=== PATIENT | male | born 1950 | race Caucasian/White ===

== ENCOUNTER 2017-06-25 06:38 | Inpatient (IN) ==
[2017-06-25] MEDS ORDERED: CeFAZolin Syr 2,000MG/20 ML 2,000 MG/20 ML SYRINGE IVPB ONE (06:58)
[2017-06-25] MEDS ORDERED: Lidocaine -MPF 1% 2 ML VIAL ID ONE (06:58)
[2017-06-25] MEDS ORDERED: Ringers Solution, Lactated 1,000 ML IVC SCH (07:00)
--- NOTE | 2017-06-25 07:01 | Anesthesia Evaluation PreOp ---
Date of Encounter: 06/25/17 Time of Encounter: 06:59 - Past History Planned Operation: Maria Alejandra Fundoplication Cardiac History: HTN Pulmonary History: Denies Any Significant HX LOADER TECHNICIAN History: Denies Any Significant HX Other Medical History: GERD (paraesophageal Hernia) Anesthesia History: No Prior Anesthetic Complications, Past Anesthesia (Right shoulder, Left Knee, Tonsillectomy) Alcohol Use: none Drug use: none Medications and Allergies 3 Allergy/AdvReac Type Severity Reaction Status Date / Time No Known Allergies Allergy Verified 06/11/17 13:59 - Meds/Allergy Pre-op Review Medications Reviewed: Yes Allergies Reviewed: Yes Beta Blockers on Current Med List: No Anesthesia Results - Labs Laboratory Tests 06/11/17 06/11/17 14:10 14:10 WBC 6.9 Hgb 14.5 Hct 44.2 Plt Count 320 Potassium 4.2 Creatinine 1.23 - Imaging EKG: report reviewed (SR) Anesthesia Exam NPO (# of Hours): > 8 hrs Pain Scale: 0 Pain Scale Used: Numeric (1 - 10) (0) - HEENT Pupil (Motor): Pupils equal, EOMI Mallampati: III Teeth: Normal Oral Opening: Greater than 3 - LOADER TECHNICIAN LOC: Oriented LOADER TECHNICIAN Motor: Normal RUE, Normal LUE, Normal RLE, Normal LLE, Normal Face LOADER TECHNICIAN Sensory: Normal: RUE, LUE, RLE, LLE, Face - Cardiac Rhythm: Regular Murmur: None JVD: No Carotid Bruit: No - Pulmonary Breath Sounds: bilateral Clear Respiratory Effort: Symmetrical Anesthesia Assess/Plan ASA Score: 2 Modified Pomaria Scale for Level of Consciousness: Cooperative, oriented, and tranquil Anesthetic Plan: General Autologous Blood: Yes Monitoring Plan: Standard Monitors Recovery Plan: PACU
[2017-06-25] MEDS ORDERED: Neostigmine Methylsulfate 3 MG/3 ML SYRINGE ONE (07:07)
[2017-06-25] MEDS ORDERED: *HR* Phenylephrine 10 MG/ML VIAL ONE (07:07)
[2017-06-25] MEDS ORDERED: *HR* Succinylcholine 200 MG/10 ML VIAL IVP ONE (07:07)
[2017-06-25] MEDS ORDERED: Dexamethasone 4 MG/ML VIAL ONE (07:07)
[2017-06-25] MEDS ORDERED: *HR* FentaNYL (PF) 100 MCG/2 ML VIAL ONE (07:07)
[2017-06-25] MEDS ORDERED: Lidocaine -MPF 2% 2 ML VIAL ONE ×2 (07:07)
[2017-06-25] MEDS ORDERED: *HR* Rocuronium Bromide 50 MG/5 ML VIAL ONE ×2 (07:07→10:13)
[2017-06-25] MEDS ORDERED: Lidocaine -MPF 4% 5 ML AMPUL ONE (07:07)
[2017-06-25] MEDS ORDERED: *HR* Midazolam HCl 2 MG/2 ML VIAL ONE (07:07)
[2017-06-25] MEDS ORDERED: Ondansetron 4 MG/2 ML VIAL ONE (07:07)
[2017-06-25] MEDS ORDERED: *HR* Propofol 200 MG/20 ML VIAL IVP ONE ×2 (07:07→10:06)
--- NOTE | 2017-06-25 07:08 | History & Physical Report ---
Date of Encounter: 06/25/17 Time of Encounter: 07:00 24 Hour HP Update - Instructions Instructions: If the History and Physical is less than 30 days old and was completed prior to A.M. admission and or procedure and has NOT been updated on calendar day of procedure please complete this update prior to performing procedure. - Update Patient reports changes in Medical Condition: No Changes in examination, assessment, or condition: No Changes in Medication: No Preop tests/diagnostics Reviewed: Yes Surgery Remains Indicated: Yes Consent for Planned Operative Procedure(s) Verified: Yes - Pre-Operative Checklist Preoperative Checklist Indicated: Yes Prophylactic Antibiotic Ordered: Yes Home Medications Include Beta Celia: No Is VTE Prophylaxis Indicated?: Yes
[2017-06-25] MEDS ORDERED: cefOXitin 1,000 MG, Sodium Chloride IRRigation 1,000 ML IR ONE ×2 (09:00→13:43)
[2017-06-25] MEDS ORDERED: CefOXitin 2,000 MG VIAL ONE (09:17)
[2017-06-25] MEDS ORDERED: *HR* Promethazine 25 MG/ML VIAL IVP PRN (10:26)
[2017-06-25] MEDS ORDERED: *HR* HYDROmorphone 2 MG/ML SYRINGE ONE (11:05)
[2017-06-25] MEDS ORDERED: CefOXitin 1,000 MG VIAL ONE (11:11)
[2017-06-25] MEDS ORDERED: *HR* HYDROmorphone (PF) 1 MG/ML SYRINGE IVP PRN (11:35)
[2017-06-25] MEDS ORDERED: Ondansetron 4 MG/2 ML VIAL IVP PRN ×2 (11:35→13:43)
[2017-06-25] MEDS ORDERED: *HR* OxyCODONE/APAP 5/325 TABLET PO PRN (11:35)
[2017-06-25] MEDS: *HR* HYDROmorphone (PF) 1 MG/ML SYRINGE IVP PRN ×6 (11:45→18:03)
[2017-06-25] MEDS ORDERED: 0.9 % Sodium Chloride 1,000 ML IVC SCH (11:45)
[2017-06-25] MEDS ORDERED: *HR* HYDROmorphone (PF) 1 MG/ML SYRINGE ONE ×3 (11:48→12:38)
--- NOTE | 2017-06-25 11:50 | Operative Note ---
Date of procedure: 06/25/17 Pre-op diagnosis: Paraesophageal hiatal hernia with gastric volvulus Post-op diagnosis: same Procedure: #1 repair of paraesophageal hiatal hernia #2 Maria Alejandra fundoplication #3 lysis of adhesions times 1 hour Anesthesia: BRANDT Surgeon: Fred Carson Was there an dental office assistant present: Yes Moving Van Driver: Aydee Hernandez Estimated blood loss (cc): 25 Specimen: Hernia sac Condition: stable Disposition: PACU Procedure in Detail: After informed consent the patient was taken to the major operating suite and is placed in the supine position. He is given adequate general anesthetic. We are unable to place Sue catheter. There appeared to be a urinary stricture about 1 cm inside the meatus. The abdomen was prepped and draped in sterile fashion utilizing ChloraPrep in standard draping techniques. Timeout was taken and the patient was identified. I made an upper abdominal midline incision. Abdomen was entered. There is absolutely no stomach and the abdomen. I mobilized the triangular ligament of the lateral segment left lobe of liver. This was mobilized to the level of the inferior vena cava. I then retracted the lateral segment of the left lobe inferiorly and medially. I brought most stomach out of the chest. There was a complex set of bandlike scars as well as hernia sacs extending into the mediastinum both on the right and the left side. I divided the hernia sac overlying the right pranay of the diaphragm. Using this as an initial dissection I carefully worked to remove all of the hernia sac from the mediastinum. Any dissection in the area of the esophagus was guided by a lighted 54-[place] bougie. Removal of the hernia sac from the mediastinum took 1 hour. There is a good deal of soft tissue at the superior border of the pancreas that was also rolled in the mediastinum. I divided soft tissue superior to this tissue mass and was able to rotate this back into the retroperitoneum and out of the mediastinum by dividing all the tissue anterior to the right and left crura of the diaphragm. After one hour of dissection I was able to free the stomach from all connections to the mediastinum and protect the esophagus. The hernia sac was completely resected and sent for pathologic evaluation. This was quite a large specimen. I then divided the short gastrics of the cardia with Harmonic scalpel. I was able to surround the gastroesophageal junction with Yeimy and visualized the right and left pranay of the diaphragm from the right side. I performed hiatal hernia repair with 4 stitches of pledgeted 2-0 Ethibond suture material. I then brought the cardia behind the gastroesophageal junction and performed a drop and shoeshine test. Maria Alejandra fundoplication was created using 3 stitches of 2-0 Ethibond with pledgets. I secured the Maria Alejandra fundoplication to the diaphragm using shoulder stitches. I used one stitch on the right and one on the left securing the Maria Alejandra fundoplication to the diaphragm just outside of the hiatal hernia repair. This gave an excellent technical result and stabilize the wrap. I also performed an area of anterior gastropexy with 3 stitches of 2-0 silk tightly grouped between the greater curvature of the stomach just below the cardia and the diaphragm. This gave an excellent technical result. Catheter was removed. All sponges and retractors were removed. The sponge and needle count was correct. Soft counts correct. The abdomen was closed with looped 0 PDS and the skin with interrupted 2-0 Vicryl and skin clips. She tolerated the procedure well.
[2017-06-25] MEDS ORDERED: Ketorolac 30 MG/ML VIAL IVP ONE (12:11)
[2017-06-25] MEDS ORDERED: Acetaminophen IV 1,000 MG/100 ML INFUS..BTL IVPB ONE (12:12)
[2017-06-25] MEDS ORDERED: Acetaminophen IV 1,000 MG/100 ML INFUS..BTL ONE (12:21)
[2017-06-25] MEDS ORDERED: *HR* HYDROmorphone 2 MG/ML SYRINGE IVP ONE (12:43)
--- NOTE | 2017-06-25 13:05 | Anesthesia Evaluation Post Op ---
Date of Encounter: 06/25/17 Time of Encounter: 13:03 - Vital Signs Vital Signs: Vital Signs/O2 Sat, Most Current Temp Pulse Resp BP Pulse Ox 98.1 F 82 16 100/76 97 06/25/17 12:42 06/25/17 12:52 06/25/17 12:52 06/25/17 12:52 06/25/17 12:52 - Lungs Lungs: Clear Ascult./Percussion - Airway Airway: Non-obstructed - Cardiovascular Regular Rate - Mental Status Mental Status: Alert & Oriented, Answers Appropriately - Pain Pain Scale: 3 - Nausea Vomiting Nausea Vomiting: Not Present - Hydration Hydration: NPO, Has not voided - Discharge PostOp Status: Transfer Patient to floor
[2017-06-25] MEDS: CeFAZolin Premix DUPLEX 2,000 MG/50 ML BAG IVPB SCH (15:19)
[2017-06-25] MEDS: 0.9 % Sodium Chloride 1,000 ML IVC SCH (15:20)
[2017-06-25] MEDS ORDERED: CeFAZolin Premix DUPLEX 2,000 MG/50 ML BAG IVPB SCH (16:00)
[2017-06-25] MEDS ORDERED: *HR* Heparin 5,000 UNIT/ML VIAL SQ SCH (18:00)
[2017-06-25] MEDS: *HR* Heparin 5,000 UNIT/ML VIAL SQ SCH (18:03)
[2017-06-25] MEDS: *HR* OxyCODONE/APAP 5/325 TABLET PO PRN (21:52)
[2017-06-26] MEDS: *HR* HYDROmorphone (PF) 1 MG/ML SYRINGE IVP PRN ×6 (00:03→23:22)
[2017-06-26] MEDS: CeFAZolin Premix DUPLEX 2,000 MG/50 ML BAG IVPB SCH (00:04)
[2017-06-26] MEDS: *HR* OxyCODONE/APAP 5/325 TABLET PO PRN ×2 (02:27→15:53)
[2017-06-26] MEDS: 0.9 % Sodium Chloride 1,000 ML IVC SCH ×3 (02:28→22:05)
[2017-06-26 05:13] LABS: Calcium 8.6 mg/dL (8.6-10.3); Potassium 4.4 mEq/L (3.5-5.1)
[2017-06-26 05:28] LABS: Basophils % 0.1 %; Hematocrit 40.5 % (37.5-50.1); Hemoglobin 13.1 g/dL (12.9-16.9); Immature Granulocytes % 0.4 % (0-4); Lymphocytes % 8.7 %; Mean Corpuscular HGB Conc 32.3 g/dL (31.6-35.5); Mean Corpuscular Hemoglobin 29.5 pg (28.0-33.3); Mean Corpuscular Volume 91.2 fL (83.0-100.0); Mean Platelet Volume 10.3 fL (9.4-12.4); Monocytes % 9.5 %; Platelet Count 301 K/mcL (140-400); Red Blood Count 4.44 M/mcL (4.19-5.50); Red Cell Distribution Width 12.8 % (11.5-14.5); Segmented Neutrophils % 81.3 %
[2017-06-26] MEDS: *HR* Heparin 5,000 UNIT/ML VIAL SQ SCH ×2 (05:41→17:34)
--- NOTE | 2017-06-26 08:10 | General Surgery Progress Note ---
<Shirley Barahona - Last Filed: 06/26/17 15:12> Date of Encounter: 06/26/17 Time of Encounter: 08:08 - Assessment and Plan (1) S/P repair of paraesophageal hernia Current Visit: Yes Status: Acute Date of procedure: 06/25/17 Pre-op diagnosis: Paraesophageal hiatal hernia with gastric volvulus Post-op diagnosis: same Procedure: #1 repair of paraesophageal hiatal hernia #2 Maria Alejandra fundoplication # 3 lysis of adhesions Anesthesia: DEE DEEA Surgeon: Fred Carson POD #1 Plan: serial abdominal exams Clear liquid diet continue supportive care and discomfort management while awaiting return bowel function. Repeat a.m. labs ambulate TID with assistance up to chair for all trays continue G.I. and DVT prophylaxis Pulmonary consideration: -Pt endorsed one episodes of mucus secretion. Denies SOB. If recurrent, SOB, cough develops will plan for CXR stat in AM. -Recommended deep inspiration, with priority for adequate pain management -Incentive spirometry while awake (2) Hypertension Current Visit: Yes Status: Chronic IV lopressor PRN. Qualifiers: Hypertension type: essential hypertension Qualified Code(s): I10 - Essential (primary) hypertension (4) Hyponatremia Current Visit: Yes Status: Acute Corrected 130 (Glucose 119 mg/dL). Will monitor. Asymptomatic. BMP in AM. (5) Postoperative urinary retention Current Visit: Yes Status: Acute AM Bladder scan by RN - [address] taylor - Concern for possible stricture noted in pre-operative care Expectant management until noon If unable to void, will plan for urology consult due to possible stricture Reassessed in afternoon: Pt able to void without difficulty. Continue to monitor I/O. (6) DVT prophylaxis Current Visit: Yes Status: Acute Heparin SubQ Subjective Patient reports: tolerating liquids well, no flatus, no bowel movement, afebrile Narrative: No N/V. No flatus, no bowel movement as of approx 8:30 AM. Reassessed in afternoon: Endorsed one episode mucus in AM. No blood in mucus. And none since then. Able to void without difficulty in afternoon. Denies SOB. Not wearing nasal cannula and wondering if he can discontinue use altogether. Endorses use of incentive spirometry. Objective Vital Signs - Last 8 Hours Temp Pulse Resp BP Pulse Ox 06/26/17 07:57 97.5 F L 77 14 110/74 97 06/26/17 04:15 97.5 F L 78 14 105/71 93 06/26/17 01:03 97.6 F 79 14 112/72 93 Intake and Output 06/25/17 06/26/17 06/26/17 23:59 07:59 15:59 Intake Total 0 / 0 390 / 390 Output Total 0 / 0 150 / 150 Balance 0 / 0 240 / 240 Intake: IV Fluids 150 / 150 0.9 % Sodium Chloride 1,000 ML 100 / 100 @ 100 mls/hr IVC .Q10H [facility] Rx#: [id number] Ancef Premix DUPLEX 2,000 mg In 50 / 50 50 ml @ 100 mls/hr IVPB Q8HR [facility] Rx#:[id number] Oral 0 / 0 240 / 240 Output: Urine 0 / 0 150 / 150 Other: Weight 102.33 kg Patient Weight 06/26/17 23:59 Weight 102.33 kg - General physical appearance no distress - Eyes normal ocular movement - Respiratory normal expansion, normal respiratory effort - Cardiovascular Cardiovascular exam: Present: RRR, no murmurs/rubs/gallops - Abdomen Abdomen: Present: bowel sounds present, soft, non tender, tender (light tenderness on palpation ) - Labs 06/26/17 04:43 06/26/17 04:43 Diabetes panel 06/26/17 Range/Units 04:43 Sodium 130 L (136-145) mEq/L Potassium 4.4 (3.5-5.1) mEq/L Chloride 102 (98-107) mEq/L Carbon Dioxide 22 L (23-29) mEq/L BUN 28 H (8-23) mg/dL Creatinine 1.67 H (0.70-1.30) mg/dL Glucose 119 H (70-105) mg/dL Calcium 8.6 (8.6-10.3) mg/dL Calcium panel 06/26/17 Range/Units 04:43 Calcium 8.6 (8.6-10.3) mg/dL Pituitary panel 06/26/17 Range/Units 04:43 Sodium 130 L (136-145) mEq/L Potassium 4.4 (3.5-5.1) mEq/L Chloride 102 (98-107) mEq/L Carbon Dioxide 22 L (23-29) mEq/L BUN 28 H (8-23) mg/dL Creatinine 1.67 H (0.70-1.30) mg/dL Glucose 119 H (70-105) mg/dL Calcium 8.6 (8.6-10.3) mg/dL Adrenal panel 06/26/17 Range/Units 04:43 Sodium 130 L (136-145) mEq/L Potassium 4.4 (3.5-5.1) mEq/L Chloride 102 (98-107) mEq/L Carbon Dioxide 22 L (23-29) mEq/L BUN 28 H (8-23) mg/dL Creatinine 1.67 H (0.70-1.30) mg/dL Glucose 119 H (70-105) mg/dL Calcium 8.6 (8.6-10.3) mg/dL - VTE Documentation of Mechanical Device: Intermittent pneumatic compression device Consult Discharge Plan - Plan Referrals: Mary Lopez KIDS ACTIVITIES COACH [Primary Care Provider] - Therese Watkins CNP [Advanced Practice Nurse] - 07/14/17 1:00 pm <Fred Carson - Last Filed: 06/29/17 08:30> Date of Encounter: 06/26/17 Objective Vital Signs - Last 8 Hours Temp Pulse Resp BP Pulse Ox 06/29/17 06:50 97.4 F L 77 14 133/84 94 06/29/17 03:59 16 95 06/29/17 03:53 98.0 F 74 18 128/87 95 Intake and Output 06/28/17 06/29/17 06/29/17 23:59 07:59 15:59 Intake Total 460 / 460 500 / 500 Output Total 500 / 500 1999 Balance -40 / -40 -1500 / -1500 Intake: IV Fluids 100 / 100 200 / 200 Ofirmev 1,000 mg/100 ml 1,000 100 / 100 200 / 200 mg In 100 ml @ 400 mls/hr IVPB Q6H [facility] Rx#:[id number] Oral 360 / 360 300 / 300 Output: Urine 500 / 500 1999 Other: Meal Dinner Percent of Meal Consumed 0% # Voids 1 Weight 103.62 kg Patient Weight 06/29/17 23:59 Weight 103.62 kg - Labs 06/29/17 04:35 06/28/17 08:44 Diabetes panel 01/28/18 Range/Units 08:44 Sodium 120 L* (136-145) mEq/L Thyroid panel 06/29/17 Range/Units 04:35 TSH 2.119 (0.340-5.600) mcIU/mL Pituitary panel 06/28/17 06/29/17 Range/Units 08:44 04:35 Sodium 120 L* (136-145) mEq/L TSH 2.119 (0.340-5.600) mcIU/mL Adrenal panel 06/28/17 Range/Units 08:44 Sodium 120 L* (136-145) mEq/L - Attending Attestation I examined this patient and my medical decision-making was reviewed with the Resident Physician. I agree with the documented findings, disposition and treatment plan as described except to the extent set forth below. The patient is seen and evaluated on morning rounds with the resident. He is doing well on postoperative day 1. He is in good deal of pain from the upper abdominal incision. Continue supportive care. Fred Carson MD FACS
[2017-06-26] MEDS ORDERED: *HR* Metoprolol 5 MG/5 ML VIAL IVP PRN (09:13)
[2017-06-27] MEDS: *HR* OxyCODONE/APAP 5/325 TABLET PO PRN ×3 (00:39→08:48)
[2017-06-27] MEDS: *HR* HYDROmorphone (PF) 1 MG/ML SYRINGE IVP PRN ×3 (02:49→21:06)
[2017-06-27 04:03] LABS: Basophils % 0.2 %; Eosinophils % 0.2 %; Hematocrit 36.2 % (37.5-50.1); Immature Granulocytes % 0.4 % (0-4); Lymphocytes # 1.2 K/mcL (0.6-4.6); Lymphocytes % 10.8 %; Mean Corpuscular HGB Conc 33.1 g/dL (31.6-35.5); Mean Corpuscular Hemoglobin 29.5 pg (28.0-33.3); Mean Corpuscular Volume 88.9 fL (83.0-100.0); Mean Platelet Volume 10.1 fL (9.4-12.4); Monocytes # 1.3 K/mcL (0.0-1.3); Monocytes % 11.9 %; Neutrophils # 8.3 K/mcL (1.6-8.9); Platelet Count 278 K/mcL (140-400); Red Blood Count 4.07 M/mcL (4.19-5.50); Red Cell Distribution Width 12.5 % (11.5-14.5); Segmented Neutrophils % 76.5 %
[2017-06-27 04:31] LABS: BUN/Creatinine Ratio 15 (6-26); Blood Urea Nitrogen 15 mg/dL (8-23); Calcium 8.4 mg/dL (8.6-10.3); Carbon Dioxide 23 mEq/L (23-29); Chloride 99 mEq/L (98-107); Glucose 115 mg/dL (70-105); Osmolality,Calculated 266 (280-300); Potassium 3.9 mEq/L (3.5-5.1); Sodium 127 mEq/L (136-145); eGFR For African Americans > 60 (> 60); eGFR For Non-African Americans > 60 (> 60)
--- NOTE | 2017-06-27 05:00 | General Surgery Progress Note ---
<Shirley Barahona - Last Filed: 06/27/17 13:40> Date of Encounter: 06/27/17 Time of Encounter: 04:58 - Assessment and Plan (1) S/P repair of paraesophageal hernia Current Visit: Yes Status: Acute Date of procedure: 06/25/17 Pre-op diagnosis: Paraesophageal hiatal hernia with gastric volvulus Post-op diagnosis: same Procedure: #1 repair of paraesophageal hiatal hernia #2 Maria Alejandra fundoplication # 3 lysis of adhesions Anesthesia: DEE DEEA Surgeon: Fred Carson POD #2 Plan: serial abdominal exams Clear liquid diet, with supplements continue supportive care and discomfort management while awaiting return bowel function. ambulate TID with assistance up to chair for all trays continue G.I. and DVT prophylaxis IVF fluids - 50 ml/hr Pulm: -Pt endorsed one episodes of mucus secretion yesterday, resolved this AM. -Endorses SOB, cough, although improved. However, PE exam concern for lung consolidation -CXR stat ordered: Left basilar opacity seen, consistent with atelectatsis Reviewed image and report with Dr. Sparrow Will initiate AccuNeb -Respiratory consult in place and support for pulmonary toilet activity -Incentive spirometry while awake. Educated pt on importance of continued IS use -Recommended deep inspiration, with priority for adequate pain management (2) Hypertension Current Visit: Yes Status: Chronic BP remains within goal. Pt to resume PO meds today. Qualifiers: Hypertension type: essential hypertension Qualified Code(s): I10 - Essential (primary) hypertension (3) Hyponatremia Current Visit: Yes Status: Acute Will continue monitor. Asymptomatic. BMP in AM. (4) Postoperative urinary retention Current Visit: Yes Status: Acute Pt able to void without difficulty yesterday, initially there was concern for postoperative urinary retention in immediate overnight period. Bladder Scan 550 mL Initial retention may have been 2/2 to GETA response UOP appears adequate over reported 16-hr period: 1.1 cc/kg/hr Will Continue to monitor I/O. Do not place taylor if concern re-develops - Concern for possible stricture noted in pre-operative care. (5) DVT prophylaxis Current Visit: Yes Status: Acute Heparin SubQ Ambulation, as noted above, with assistance EPCDs Subjective Patient reports: no new complaints (No acute events overnight. Endorses sob, and some coughing, although improved. ), voiding w/o difficulty, afebrile Objective Vital Signs - Last 8 Hours Temp Pulse Resp BP Pulse Ox 06/27/17 04:20 97.9 F 83 18 118/78 94 06/26/17 22:28 97.8 F 81 17 121/73 94 Intake and Output 06/26/17 06/26/17 06/27/17 15:59 23:59 07:59 Intake Total 2080 / 2080 1800 / 1800 500 / 500 Output Total 325 / 325 1000 / 1000 400 / 400 Balance 1755 / 1755 800 / 800 100 / 100 Intake: IV Fluids 1000 / 1000 1000 / 1000 0.9 % Sodium Chloride 1,000 ML 1000 / 1000 1000 / 1000 @ 100 mls/hr IVC .Q10H [facility] Rx#: [id number] Oral 1080 / 1080 800 / 800 500 / 500 Output: Urine 325 / 325 1000 / 1000 400 / 400 Other: Meal Breakfast # Voids 1 Weight 103.5 kg Patient Weight 06/27/17 23:59 Weight 103.5 kg - General physical appearance no distress - Eyes normal ocular movement - Respiratory normal expansion, normal respiratory effort, other crackles: bilateral - Cardiovascular Cardiovascular exam: Present: RRR, no murmurs/rubs/gallops - Abdomen Abdomen: Present: bowel sounds present, soft, non tender - Neurologic normal coordination - Psychiatric oriented to time, oriented to person, oriented to place, speech is normal - Labs 06/27/17 03:22 06/27/17 03:22 Diabetes panel 06/26/17 06/27/17 Range/Units 04:43 03:22 Sodium 130 L 127 L (136-145) mEq/L Potassium 4.4 3.9 (3.5-5.1) mEq/L Chloride 102 99 (98-107) mEq/L Carbon Dioxide 22 L 23 (23-29) mEq/L BUN 28 H 15 (8-23) mg/dL Creatinine 1.67 H 0.98 (0.70-1.30) mg/dL Glucose 119 H 115 H (70-105) mg/dL Calcium 8.6 8.4 L (8.6-10.3) mg/dL Calcium panel 06/26/17 06/27/17 Range/Units 04:43 03:22 Calcium 8.6 8.4 L (8.6-10.3) mg/dL Pituitary panel 06/26/17 06/27/17 Range/Units 04:43 03:22 Sodium 130 L 127 L (136-145) mEq/L Potassium 4.4 3.9 (3.5-5.1) mEq/L Chloride 102 99 (98-107) mEq/L Carbon Dioxide 22 L 23 (23-29) mEq/L BUN 28 H 15 (8-23) mg/dL Creatinine 1.67 H 0.98 (0.70-1.30) mg/dL Glucose 119 H 115 H (70-105) mg/dL Calcium 8.6 8.4 L (8.6-10.3) mg/dL Adrenal panel 06/26/17 06/27/17 Range/Units 04:43 03:22 Sodium 130 L 127 L (136-145) mEq/L Potassium 4.4 3.9 (3.5-5.1) mEq/L Chloride 102 99 (98-107) mEq/L Carbon Dioxide 22 L 23 (23-29) mEq/L BUN 28 H 15 (8-23) mg/dL Creatinine 1.67 H 0.98 (0.70-1.30) mg/dL Glucose 119 H 115 H (70-105) mg/dL Calcium 8.6 8.4 L (8.6-10.3) mg/dL - VTE Documentation of Mechanical Device: Intermittent pneumatic compression device Consult Discharge Plan - Plan Referrals: Mary Lopez, [facility] PUNCHER [Primary Care Provider] - Therese Watkins CNP [Advanced Practice Nurse] - 07/14/17 1:00 pm <Rossana Sparrow - Last Filed: 06/27/17 14:12> Date of Encounter: 06/27/17 Time of Encounter: 09:45 - Assessment and Plan (1) Shortness of breath Current Visit: Yes Status: Acute start duoneb accupaps q6 hr encourage aggressive pulmomary toilet cough and deep breath decrease IVF (2) DVT prophylaxis Current Visit: Yes Status: Acute (3) S/P repair of paraesophageal hernia Current Visit: Yes Status: Acute continue clears OOB to chair, ambulate gi/dvt prophylaxis no nausea or distention, tolerating sips clears will decrease IVF (4) Hypertension Current Visit: Yes Status: Chronic Qualifiers: Hypertension type: essential hypertension Qualified Code(s): I10 - Essential (primary) hypertension Subjective Narrative: patient doing well complaining of coughing no nausea doing clears no flatus or bm denies abdominal distention complained of some SOB earlier Objective Vital Signs - Last 8 Hours Temp Pulse Resp BP Pulse Ox 06/27/17 10:30 97.5 F L 87 16 143/94 94 06/27/17 08:45 94 06/27/17 06:53 97.4 F L 81 16 126/81 94 Intake and Output 06/26/17 06/27/17 06/27/17 23:59 07:59 15:59 Intake Total 1800 / 1800 500 / 500 2505 / 2505 Output Total 1000 / 1000 400 / 400 400 / 400 Balance 800 / 800 100 / 100 2105 / 2105 Intake: IV Fluids 1000 / 1000 1125 / 1125 0.9 % Sodium Chloride 1,000 ML 1000 / 1000 1125 / 1125 @ 100 mls/hr IVC .Q10H [facility] Rx#: [id number] Oral 800 / 800 500 / 500 1380 / 1380 Output: Urine 1000 / 1000 400 / 400 400 / 400 Other: # Voids 1 1 Weight 103.5 kg Patient Weight 06/27/17 23:59 Weight 103.5 kg - General physical appearance well nourished, no distress - Eyes PERRL, normal ocular movement - ENT normal mucosa, normocephalic - Neck Neck exam: trachea midline - Respiratory normal expansion, other crackles: bilateral (bases) - Cardiovascular Cardiovascular exam: Present: RRR - Abdomen Abdomen: Present: bowel sounds present, soft, tender (appropriate post op tenderness, ). Absent: distended, guarding, rebound - Incision Incision: Present: clean and dry, intact - Integumentary no rash, no growths - Neurologic normal coordination - Musculoskeletal normal posture - Psychiatric oriented to time, oriented to person, memory intact - Labs 06/27/17 03:22 06/27/17 03:22 Diabetes panel 06/27/17 Range/Units 03:22 Sodium 127 L (136-145) mEq/L Potassium 3.9 (3.5-5.1) mEq/L Chloride 99 (98-107) mEq/L Carbon Dioxide 23 (23-29) mEq/L BUN 15 (8-23) mg/dL Creatinine 0.98 (0.70-1.30) mg/dL Glucose 115 H (70-105) mg/dL Calcium 8.4 L (8.6-10.3) mg/dL Calcium panel 06/27/17 Range/Units 03:22 Calcium 8.4 L (8.6-10.3) mg/dL Pituitary panel 06/27/17 Range/Units 03:22 Sodium 127 L (136-145) mEq/L Potassium 3.9 (3.5-5.1) mEq/L Chloride 99 (98-107) mEq/L Carbon Dioxide 23 (23-29) mEq/L BUN 15 (8-23) mg/dL Creatinine 0.98 (0.70-1.30) mg/dL Glucose 115 H (70-105) mg/dL Calcium 8.4 L (8.6-10.3) mg/dL Adrenal panel 06/27/17 Range/Units 03:22 Sodium 127 L (136-145) mEq/L Potassium 3.9 (3.5-5.1) mEq/L Chloride 99 (98-107) mEq/L Carbon Dioxide 23 (23-29) mEq/L BUN 15 (8-23) mg/dL Creatinine 0.98 (0.70-1.30) mg/dL Glucose 115 H (70-105) mg/dL Calcium 8.4 L (8.6-10.3) mg/dL - Imaging Chest x-ray: report reviewed, image reviewed - Attending Attestation I examined this patient and my medical decision-making was reviewed with the Resident Physician. I agree with the documented findings, disposition and treatment plan as described except to the extent set forth below.
[2017-06-27] MEDS: *HR* Heparin 5,000 UNIT/ML VIAL SQ SCH ×2 (06:04→18:03)
[2017-06-27] MEDS: 0.9 % Sodium Chloride 1,000 ML IVC SCH (08:39)
[2017-06-27] MEDS: Aspirin Enteric Coated 81 MG Tablet PO SCH (11:00)
[2017-06-27] MEDS: Cyanocobalamin (B-12) 1,000 MCG TABLET PO SCH (11:00)
[2017-06-27] MEDS ORDERED: Albuterol Neb 1.25 MG/3 ML VIAL IH SCH (12:15)
[2017-06-27] MEDS ORDERED: 0.9 % Sodium Chloride 1,000 ML IVC SCH (13:15)
[2017-06-27] MEDS: Ketorolac 15 MG/ML VIAL IVP SCH ×3 (14:13→23:27)
[2017-06-27] MEDS: Ipratropium/Albuterol Neb 3 ML IH SCH ×2 (15:07→21:49)
[2017-06-28] MEDS: *HR* HYDROmorphone (PF) 1 MG/ML SYRINGE IVP PRN ×3 (01:18→17:57)
[2017-06-28] MEDS: Ipratropium/Albuterol Neb 3 ML IH SCH ×4 (04:00→21:49)
[2017-06-28] MEDS: Ketorolac 15 MG/ML VIAL IVP SCH ×2 (05:11→12:26)
[2017-06-28] MEDS: *HR* Heparin 5,000 UNIT/ML VIAL SQ SCH ×2 (05:11→17:57)
[2017-06-28 07:51] LABS: Basophils % 0.3 %; Eosinophils % 0.4 %; Hematocrit 32.2 % (37.5-50.1); Hemoglobin 10.8 g/dL (12.9-16.9); Immature Granulocytes % 0.5 % (0-4); Lymphocytes % 11.2 %; Mean Corpuscular HGB Conc 33.5 g/dL (31.6-35.5); Mean Corpuscular Hemoglobin 29.5 pg (28.0-33.3); Mean Platelet Volume 10.2 fL (9.4-12.4); Monocytes % 11.3 %; Platelet Count 258 K/mcL (140-400); Red Blood Count 3.66 M/mcL (4.19-5.50); Red Cell Distribution Width 12.3 % (11.5-14.5); Segmented Neutrophils % 76.3 %
[2017-06-28 08:01] LABS: BUN/Creatinine Ratio 14 (6-26); Blood Urea Nitrogen 13 mg/dL (8-23); Calcium 8.2 mg/dL (8.6-10.3); Carbon Dioxide 19 mEq/L (23-29); Chloride 93 mEq/L (98-107); Glucose 124 mg/dL (70-105); Osmolality,Calculated 252 (280-300); Potassium 3.2 mEq/L (3.5-5.1); Sodium 120 mEq/L (136-145); eGFR For African Americans > 60 (> 60); eGFR For Non-African Americans > 60 (> 60)
[2017-06-28] MEDS: Aspirin Enteric Coated 81 MG Tablet PO SCH (08:16)
[2017-06-28] MEDS: Cyanocobalamin (B-12) 1,000 MCG TABLET PO SCH (08:16)
--- NOTE | 2017-06-28 09:08 | General Surgery Progress Note ---
<Shirley Barahona - Last Filed: 06/28/17 09:22> Date of Encounter: 06/28/17 Time of Encounter: 09:05 - Assessment and Plan (1) S/P repair of paraesophageal hernia Current Visit: Yes Status: Acute Date of procedure: 06/25/17 Pre-op diagnosis: Paraesophageal hiatal hernia with gastric volvulus Post-op diagnosis: same Procedure: #1 repair of paraesophageal hiatal hernia #2 Maria Alejandra fundoplication # 3 lysis of adhesions Anesthesia: GETA Surgeon: Fred Carson POD #3 Plan: serial abdominal exams Clear liquid diet, with supplements Pt reports continued pain, prioritize pain management to support rehabilitation Ambulate TID with assistance up to chair for all trays continue G.I. and DVT prophylaxis IV fluids previously titrated down to 50 cc/hr. D/c'ing fluids due to hyponatremia (2) Hypertension Current Visit: Yes Status: Chronic On home medications. Qualifiers: Hypertension type: essential hypertension Qualified Code(s): I10 - Essential (primary) hypertension (3) Shortness of breath Current Visit: Yes Status: Acute Pt states Accunebs alleviated SOB. Continue accupaps q6 hr Encouraged aggressive pulmomary toilet this AM Encouraged cough and deep breathing (4) Hyponatremia Current Visit: Yes Status: Acute Pt remains alert and oriented in speech. Alert if N/V develops Repeat BMP D/c'd Fluids (5) Postoperative urinary retention Current Visit: Yes Status: Acute Initial retention may have been 2/2 to GETA response Will Continue to monitor I/O. Do not place taylor if concern re-develops - Concern for possible stricture noted in pre-operative care. (6) DVT prophylaxis Current Visit: Yes Status: Acute Heparin SubQ Ambulation, as noted above, with assistance EPCDs Subjective Patient reports: still having pain, voiding w/o difficulty, no flatus, no bowel movement, afebrile Narrative: Rates pain at a 5/10. Per daughter, pain earlier at 7/10. Pt feels percocet gave him headache and worsened abdominal pain. Objective Vital Signs - Last 8 Hours Temp Pulse Resp BP Pulse Ox 06/28/17 07:29 98.0 F 77 20 141/92 95 06/28/17 04:00 16 95 06/28/17 03:50 97.6 F 79 18 137/92 94 Intake and Output 01/27/18 01/28/18 01/28/18 23:59 07:59 15:59 Intake Total 0 / 0 0 / 0 Output Total 200 / 200 325 / 325 Balance -200 / -200 -325 / -325 Intake: Oral 0 / 0 0 / 0 Output: Urine 200 / 200 325 / 325 - General physical appearance moderate pain - Eyes normal ocular movement - Respiratory crackles: bilateral - Abdomen Abdomen: Present: bowel sounds present, tender (epigastric area) - Incision Incision: Absent: draining, purulent - Psychiatric oriented to time, oriented to person, oriented to place - Labs 06/28/17 06:45 06/28/17 06:45 Diabetes panel 06/28/17 Range/Units 06:45 Sodium 120 L* (136-145) mEq/L Potassium 3.2 L (3.5-5.1) mEq/L Chloride 93 L (98-107) mEq/L Carbon Dioxide 19 L (23-29) mEq/L BUN 13 (8-23) mg/dL Creatinine 0.95 (0.70-1.30) mg/dL Glucose 124 H (70-105) mg/dL Calcium 8.2 L (8.6-10.3) mg/dL Calcium panel 06/28/17 Range/Units 06:45 Calcium 8.2 L (8.6-10.3) mg/dL Pituitary panel 06/28/17 Range/Units 06:45 Sodium 120 L* (136-145) mEq/L Potassium 3.2 L (3.5-5.1) mEq/L Chloride 93 L (98-107) mEq/L Carbon Dioxide 19 L (23-29) mEq/L BUN 13 (8-23) mg/dL Creatinine 0.95 (0.70-1.30) mg/dL Glucose 124 H (70-105) mg/dL Calcium 8.2 L (8.6-10.3) mg/dL Adrenal panel 06/28/17 Range/Units 06:45 Sodium 120 L* (136-145) mEq/L Potassium 3.2 L (3.5-5.1) mEq/L Chloride 93 L (98-107) mEq/L Carbon Dioxide 19 L (23-29) mEq/L BUN 13 (8-23) mg/dL Creatinine 0.95 (0.70-1.30) mg/dL Glucose 124 H (70-105) mg/dL Calcium 8.2 L (8.6-10.3) mg/dL - VTE Documentation of Mechanical Device: Intermittent pneumatic compression device Consult Discharge Plan - Plan Referrals: Mary Lopez SALES ORDER SPECIALIST [Primary Care Provider] - Therese Watkins CNP [Advanced Practice Nurse] - 07/14/17 1:00 pm <Rossana Sparrow - Last Filed: 06/28/17 13:29> Date of Encounter: 06/28/17 Time of Encounter: 12:00 - Assessment and Plan (1) Shortness of breath Current Visit: Yes Status: Acute continue IS/aerosols SLIV continue lasix 20 mg x 1 (2) DVT prophylaxis Current Visit: Yes Status: Acute continue sq heparin (3) S/P repair of paraesophageal hernia Current Visit: Yes Status: Acute continue with clears patient denies nausea, distention, hiccups or belching start reglan (4) Hypertension Current Visit: Yes Status: Chronic controlled, continue home meds Qualifiers: Hypertension type: essential hypertension Qualified Code(s): I10 - Essential (primary) hypertension (5) Hyponatremia Current Visit: Yes Status: Acute consult nephrology for management of hyponatremia Subjective Patient reports: no new complaints, still having pain, pain is less, tolerating liquids well, voiding w/o difficulty, flatus (minimal), no bowel movement, shortness of breath, afebrile Objective Vital Signs - Last 8 Hours Temp Pulse Resp BP Pulse Ox 06/28/17 10:52 20 95 06/28/17 10:40 98.2 F 86 16 138/87 94 06/28/17 07:29 98.0 F 77 20 141/92 95 Intake and Output 06/27/17 06/28/17 06/28/17 23:59 07:59 15:59 Intake Total 0 / 0 0 / 0 1020 / 1020 Output Total 200 / 200 325 / 325 375 / 375 Balance -200 / -200 -325 / -325 645 / 645 Intake: IV Fluids 100 / 100 Ofirmev 1,000 mg/100 ml 1,000 100 / 100 mg In 100 ml @ 400 mls/hr IVPB Q6H COUNT INCLUDES [facility] Rx#:[id number] Oral 0 / 0 0 / 0 920 / 920 Output: Urine 200 / 200 325 / 325 375 / 375 Other: Meal Breakfast Percent of Meal Consumed 0% - General physical appearance well developed, well nourished, no distress - Eyes PERRL, normal ocular movement - ENT normal mucosa, normocephalic - Neck Neck exam: trachea midline - Respiratory normal expansion, clear to auscultation, other (conversational dyspnea) - Cardiovascular Cardiovascular exam: Present: RRR - Abdomen Abdomen: Present: bowel sounds present, tender (appropriate post op tenderness) . Absent: distended (patient denies), guarding, rebound - Incision Incision: Present: clean and dry, intact - Integumentary no rash, no growths - Neurologic CN 2-12 grossly intact - Musculoskeletal normal posture - Psychiatric oriented to time, oriented to person, oriented to place, memory intact - Labs 06/28/17 06:45 06/28/17 08:44 Diabetes panel 06/28/17 06/28/17 Range/Units 06:45 08:44 Sodium 120 L* 120 L* (136-145) mEq/L Potassium 3.2 L (3.5-5.1) mEq/L Chloride 93 L (98-107) mEq/L Carbon Dioxide 19 L (23-29) mEq/L BUN 13 (8-23) mg/dL Creatinine 0.95 (0.70-1.30) mg/dL Glucose 124 H (70-105) mg/dL Calcium 8.2 L (8.6-10.3) mg/dL Calcium panel 06/28/17 Range/Units 06:45 Calcium 8.2 L (8.6-10.3) mg/dL Pituitary panel 06/28/17 06/28/17 Range/Units 06:45 08:44 Sodium 120 L* 120 L* (136-145) mEq/L Potassium 3.2 L (3.5-5.1) mEq/L Chloride 93 L (98-107) mEq/L Carbon Dioxide 19 L (23-29) mEq/L BUN 13 (8-23) mg/dL Creatinine 0.95 (0.70-1.30) mg/dL Glucose 124 H (70-105) mg/dL Calcium 8.2 L (8.6-10.3) mg/dL Adrenal panel 06/28/17 06/28/17 Range/Units 06:45 08:44 Sodium 120 L* 120 L* (136-145) mEq/L Potassium 3.2 L (3.5-5.1) mEq/L Chloride 93 L (98-107) mEq/L Carbon Dioxide 19 L (23-29) mEq/L BUN 13 (8-23) mg/dL Creatinine 0.95 (0.70-1.30) mg/dL Glucose 124 H (70-105) mg/dL Calcium 8.2 L (8.6-10.3) mg/dL
[2017-06-28] MEDS: Acetaminophen IV 1,000 MG/100 ML INFUS..BTL IVPB SCH ×3 (11:22→22:46)
[2017-06-28] MEDS: Albuterol Neb 1.25 MG/3 ML VIAL IH SCH ×4 (11:49→23:11)
[2017-06-28] MEDS ORDERED: Furosemide 20 MG/2 ML VIAL IVP ONE (13:24)
--- NOTE | 2017-06-28 14:11 | Nephrology Consult Note ---
Date of Encounter: 06/28/17 Time of Encounter: 14:00 Assessment and Plan (1) Hyponatremia Status: Acute Hyponatremia in the setting of HCTZ and postop likely ADH excess Will stop HCTZ Agree with holding NS for now Will start Salt tabs instead if able to tolerate Liberalize sodium in diet Will check urine and serum osmolality along with TSH, uric acid and cortisol levels (2) S/P repair of paraesophageal hernia Status: Acute Per surgery team History of Present Illness - Reason for Consult Consult date: 06/28/17 hyponatremia Requesting physician: Shirley Barahona - History of Present Illness 67 y o male with PMH of HTN POD # for hiatal hernia repair, maria alejandra fundoplication and lysis of adhesions who developed hyponatremia appears to be acute on ?chronic. Sodium noted at 130 in initial labs which has worsened during stay to 120 today. Pt noted to be taking HCTZ from home (a common cause of chronic hyponatremia) and received some NS postop. No N/V/D. He also received a dose of lasix. Postop stay complicated by urinary retention which has resolved. Past Med Surg Social Fam HX - Past Medical History Medical history: GERD, hypertension Psychiatric history: no psych history - Social History Smoking Status: Never smoker Smokeless Tobacco Status: No Alcohol use: none Drug use: none Medications and Allergies Aspirin [Lo-Dose Aspirin EC] 81 mg PO DAILY 06/25/17 [History] Cyanocobalamin (Vitamin B-12) [Vitamin B-12] 1,000 mcg SL DAILY 06/25/17 [ History] Ergocalciferol (VITAMIN D2) [Vitamin D2] 50,000 unit PO SA 06/25/17 [History] Fish Oil/Dha/Epa [Fish Oil 1,200 mg Fish Oil] 1 cap PO DAILY 06/25/17 [History] Omeprazole [PriLOSEC] 40 mg PO DAILY 06/25/17 [History] Acetaminophen [Tylenol] 650 mg PO Q6HR PRN tablet 06/30/17 [Rx] Docusate [Colace] 100 mg PO BID #30 capsule 06/30/17 [Rx] Lisinopril [Zestril] 20 mg PO DAILY #30 tablet 06/30/17 [Rx] OxyCODONE Immed Rel [Roxicodone 5 MG] 5 mg PO Q4H PRN 7 Days #30 tablet [Rx] 3 Allergy/AdvReac Type Severity Reaction Status Date / Time No Known Allergies Allergy Verified 06/25/17 07:20 Review of Systems All Systems: reviewed and no additional remarkable complaints except as stated ( 10 systems reviewed with positives noted in HPI) Exam - Vital Signs Vital signs: Initial Vital Signs Temp Pulse Resp BP Pulse Ox 97.6 F 72 18 111/78 97 06/25/17 07:02 06/25/17 07:02 06/25/17 07:02 06/25/17 07:02 06/25/17 07:02 Vital Signs - Last 8 Hours Temp Pulse Resp BP Pulse Ox 06/28/17 10:52 20 95 06/28/17 10:40 98.2 F 86 16 138/87 94 06/28/17 07:29 98.0 F 77 20 141/92 95 Intake and Output 06/27/17 06/28/17 06/28/17 23:59 07:59 15:59 Intake Total 0 / 0 0 / 0 1380 / 1380 Output Total 200 / 200 325 / 325 375 / 375 Balance -200 / -200 -325 / -325 1005 / 1005 Intake: IV Fluids 100 / 100 Ofirmev 1,000 mg/100 ml 1,000 100 / 100 mg In 100 ml @ 400 mls/hr IVPB Q6H [facility] Rx#:[id number] Oral 0 / 0 0 / 0 1280 / 1280 Output: Urine 200 / 200 325 / 325 375 / 375 Other: Meal Breakfast Percent of Meal Consumed 0% - General Appearance General appearance: well-developed, well-nourished (acutely ill) EENT: ATNC, mucous membranes dry Neck: no JVD, supple Respiratory: clear (ant bilat) Cardiology: no edema, normal S1, normal S2 Gastrointestinal: no tenderness (surgical wound with eric, no drainage), no guarding Integumentary: warm and dry Neurologic: no focal deficit Musculoskeletal: no deformities Psychiatric: mood/affect appropriate Results - Lab Results 06/30/17 04:25 06/30/17 14:43 Most recent lab results Calcium 8.2 mg/dL (8.6-10.3) L 06/28/17 06:45 Consult Discharge Plan - Plan Instructions: Chronic Hypertension (DC) Additional Instructions: #1 may shower, no tub bath for 2 weeks #2 wash incisions with soap and water and pat dry daily #3 no lifting, pushing, pulling more than 15 pounds for the next 6 weeks #4 no driving until off narcotics for 24 hours and able to safely react in the car #5 may climb stairs [facility] Diet After Maria Alejandra Fundoplication Surgery This diet information is for patients who have recently had Maria Alejandra Fundoplication Surgery to correct reflux disease or to repair various types of hernias, such as hiatal hernia and intrathoracic stomach. This diet may also be used for other gastrointestinal surgeries, such as Heller myotomy and repair of achalasia. The diet will help control diarrhea, excess gas and swallowing problems, which may occur after this type of surgery. Important Steps to Keep Your Stomach From Stretching Eat small, frequent meals (six to eight per day). This will help you consume the majority of the nutrients you need without causing your stomach to feel full or distended. Drinking large amounts of fluids with meals can stretch your stomach. You may drink fluids between meals as often as you like, but limit fluids to 1/2 cup (4 fluid ounces) with meals and one cup (8 fluid ounces) with snacks. Sit upright while eating and stay upright for 30 minutes after each meal. [place] can help food move through your digestive tract. Do not lie down after eating. Sit upright for 2 hours after your last meal or snack of the day. Eat very slowly. Take your time when eating. Take small bites and chew your food well to beater room helper in swallowing and digestion. Avoid crusty breads and sticky, gummy foods, such as bananas, fresh doughy breads, rolls and doughnuts. These types of foods become sticky and difficult to swallow. Toasted breads tend to be better tolerated. Lastly, if you eat sweets, consume them at the end of your meal to avoid a group of symptoms referred to as dumping syndrome. This describes the rapid emptying of foods from the stomach to the small intestine. Sweetened beverages, candy and desserts move more rapidly and dump quickly into the intestines. This can cause symptoms of nausea, weakness, cold sweats, cramps, diarrhea and dizzy spells. Important Steps to Avoid Gas Do not drink through a straw, chew gum, or chew tobacco. These actions cause you to swallow air, which will produce excess gas in your stomach. Chew with your mouth closed and chew your food thoroughly. Avoid foods that cause stomach gas and distention. The foods include corn, dried beans, peas, lentils, onions, broccoli, cauliflower, and any food item from the cabbage family. Do not drink carbonated drinks, alcohol, citrus, or tomato products. What Will I Be Able To Eat and Drink After Surgery After Maria Alejandra Fundoplication Surgery, your diet will be advanced slowly by your surgeon. Generally, you will be on a thin/clear liquid diet for the first 10 days. Then you will advance to the full liquid diet for 4 days and eventually to a Maria Alejandra soft diet for 7 days. After any surgery, protein consumption is important for healing. To get enough protein, drink 3-4 [place] Instant Breakfast, Ensure, or equivalent daily. Reminder: carbonated beverages (such as sodas, energy drinks, flavored carbonated water), and alcohol are not permitted for the 1st 6 to 8 weeks after surgery. After this time you may attempt to reintroduce them in small amounts. Please note: dairy products such as milk, ice cream, and putting may cause diarrhea and some people after surgery. He may need to avoid milk products. If so you may substitute them with lactose free beverages, such as soy, rice, lactate, or almond milk. Please be aware that each patient's tolerance to food is different. Your doctor will advance your diet depending on how well you progress after surgery. Thin Liquid Diet The first diet after Maria Alejandra Fundoplication Surgery is the thin liquids diet. Follow this diet for postoperative days 1-10 06/26/2017 - 07/05/2017. Thin liquids include: Apple, Cranberry, or Grape Juice (no citrus juice) Chicken Broth Beef Broth Flavored Gelatin (Jell-O) Decaffeinated Tea or Coffee Popsicles or [place] Ice Caffeinated Beverages Will Be Permitted Based upon Tolerance Dairy Thin Milkshakes (strawberry or vanilla flavored- No chocolate) Drink 3-4 [place] instant breakfast, Ensure, or equivalent daily. May be mixed with dairy for thin milkshakes Full Liquid Diet Follow this diet for postoperative days 11-14 07/06/2017- 07/09/2017. Full liquid diet includes anything in the thin liquid diet plus: Milk, Soy, Rice, and [place] (No Chocolate) Cream of Wheat, Cream of Rice, Grits Strained Creamed Soups (No Tomato Water Broccoli) Vanilla and [place] Flavored Ice Cream Sherbet Vanilla and Butterscotch Pudding (No Chocolate or Coconut) Continue 3-4 [place] Instant Breakfast, Ensure, or an Equivalent Daily. Maybe Next with Dairy for Thin Milkshakes. Maria Alejandra Soft Diet Follow this diet for postoperative days 15-20 07/10/2017- 07/16/2017. (If you are consuming enough protein, you may stop the protein supplements). Referrals: Mary Lopez CNP [Primary Care Provider] - (2 week hospital follow-up ) Therese Watkins CNP [Advanced Practice Nurse] - 07/14/17 1:00 pm Hugo Carrasquillo MD [Partnered Physician] - (2 week hospital follow-up hypokalemia WEB REQUEST ENTERED. OFFICE WILL CALL WITH APPOINTMENT.) Prescriptions: Docusate [Colace] 100 mg PO BID #30 capsule Lisinopril [Zestril] 20 mg PO DAILY #30 tablet OxyCODONE Immed Rel [Roxicodone 5 MG] 5 mg PO Q4H PRN 7 Days #30 tablet PRN Reason: Pain
[2017-06-28 15:19] LABS: Bilirubin,Urine Negative (Negative); Blood,Urine Negative (Negative); Clarity,Urine Clear (Clear); Color,Urine Yellow (Yellow); Glucose,Urine (UA) Normal (Normal); Ketones,Urine Negative (Negative); Leukocyte Esterase,Urine Negative (Negative); Nitrite,Urine Negative (Negative); PH,Urine 6.5 pH Units (5.0-8.0); Protein,Urine Negative (Neg-Trace); Specific Gravity,Urine 1.011 (1.010-1.025); Urobilinogen,Urine Normal (Normal)
[2017-06-28 16:28] LABS: Sodium, Urine 74.8 mEq/L
[2017-06-28] MEDS: Metoclopramide 10 MG/2 ML VIAL IVP SCH (17:57)
[2017-06-29] MEDS: Metoclopramide 10 MG/2 ML VIAL IVP SCH ×4 (00:30→17:26)
[2017-06-29] MEDS: Acetaminophen IV 1,000 MG/100 ML INFUS..BTL IVPB SCH ×2 (03:43→09:04)
[2017-06-29] MEDS: Albuterol Neb 1.25 MG/3 ML VIAL IH SCH ×5 (03:59→23:18)
[2017-06-29] MEDS: Ipratropium/Albuterol Neb 3 ML IH SCH ×4 (03:59→22:20)
[2017-06-29 04:48] LABS: Basophils % 0.5 %; Eosinophils # 0.1 K/mcL (0.0-0.6); Eosinophils % 2.2 %; Hematocrit 33.9 % (37.5-50.1); Hemoglobin 11.6 g/dL (12.9-16.9); Immature Granulocytes % 0.6 % (0-4); Lymphocytes % 15.4 %; Mean Corpuscular HGB Conc 34.2 g/dL (31.6-35.5); Mean Corpuscular Hemoglobin 29.7 pg (28.0-33.3); Mean Corpuscular Volume 86.7 fL (83.0-100.0); Mean Platelet Volume 9.5 fL (9.4-12.4); Monocytes # 0.9 K/mcL (0.0-1.3); Monocytes % 14.1 %; Neutrophils # 4.3 K/mcL (1.6-8.9); Platelet Count 276 K/mcL (140-400); Red Blood Count 3.91 M/mcL (4.19-5.50); Red Cell Distribution Width 12.3 % (11.5-14.5); Segmented Neutrophils % 67.2 %
[2017-06-29 05:21] LABS: Thyroid Stimulating Hormone 2.119 mcIU/mL (0.340-5.600)
[2017-06-29] MEDS: *HR* Heparin 5,000 UNIT/ML VIAL SQ SCH ×2 (06:05→17:25)
--- NOTE | 2017-06-29 08:26 | Nephrology Progress Note ---
<Rick Painter - Last Filed: 06/29/17 12:51> Date of Encounter: 06/29/17 Time of Encounter: 08:26 - Assessment and Plan (1) Hyponatremia Status: Acute Hyponatremia in the setting of HCTZ and post-op status likely due to ADH excess Discontinue HCTZ Agree with holding NS for now Continue Salt tabs if able to tolerate Liberalize sodium in diet Continue to monitor (2) Postoperative urinary retention Status: Acute Resolved Continue to monitor (3) Hypertension Status: Chronic Management per primary team Qualifiers: Hypertension type: essential hypertension Qualified Code(s): I10 - Essential (primary) hypertension Subjective Principal diagnosis: Hyponatremia Interval history: Patient seen and examined. Patient reports abdominal pain this AM and tolerating liquid diet. His sodium level is 121 today and patient is taking salt tablets. He reports good urine output. Objective - Vital Signs Vital signs: Vital Signs Temp Pulse Resp BP Pulse Ox 06/29/17 06:50 97.4 F L 77 14 133/84 94 06/29/17 03:59 16 95 06/29/17 03:53 98.0 F 74 18 128/87 95 06/28/17 21:49 16 97 06/28/17 21:24 94 06/28/17 19:29 97.8 F 81 18 124/77 94 06/28/17 15:50 20 95 06/28/17 14:59 97.8 F 70 18 136/88 95 06/28/17 10:52 20 95 06/28/17 10:40 98.2 F 86 16 138/87 94 Intake and Output 06/28/17 06/29/17 06/29/17 23:59 07:59 15:59 Intake Total 460 / 460 500 / 500 Output Total 500 / 500 1999 / 1999 Balance -40 / -40 -1500 / -1500 Intake: IV Fluids 100 / 100 200 / 200 Ofirmev 1,000 mg/100 ml 1,000 100 / 100 200 / 200 mg In 100 ml @ 400 mls/hr IVPB Q6H [facility] Rx#:[id number] Oral 360 / 360 300 / 300 Output: Urine 500 / 500 1999 Other: Meal Dinner Percent of Meal Consumed 0% # Voids 1 Weight 103.62 kg Patient Weight 06/29/17 23:59 Weight 103.62 kg - General Appearance General appearance: Present: well-developed, well-nourished, appears started age EENT: Present: ATNC, PERRL, mucous membranes moist Neck: Present: no JVD, supple Respiratory: Present: clear Cardiology: Present: no murmurs, no edema, regular rate, regular rhythm, normal S1, normal S2 Gastrointestinal: Present: normoactive bowel sounds, tenderness (mildline incison C/D/I), no guarding Integumentary: Present: no rash, warm and dry (midline ) Neurologic: Present: no focal deficit, alert and oriented x3 Musculoskeletal: Present: no deformities, no erythema, no cyanosis Psychiatric: Present: mood/affect appropriate, cooperative - Lab 06/29/17 04:35 06/29/17 04:35 Most recent lab results Calcium 8.2 mg/dL (8.6-10.3) L 06/28/17 06:45 Urine Creatinine 17 mg/dL 06/28/17 15:00 Urine Sodium 74.8 mEq/L 06/28/17 15:00 - VTE Documentation of Mechanical Device: Intermittent pneumatic compression device Consult Discharge Plan - Plan Instructions: Chronic Hypertension (DC) Additional Instructions: #1 may shower, no tub bath for 2 weeks #2 wash incisions with soap and water and pat dry daily #3 no lifting, pushing, pulling more than 15 pounds for the next 6 weeks #4 no driving until off narcotics for 24 hours and able to safely react in the car #5 may climb stairs [place] [facility] Diet After Maria Alejandra Fundoplication Surgery This diet information is for patients who have recently had Maria Alejandra Fundoplication Surgery to correct reflux disease or to repair various types of hernias, such as hiatal hernia and intrathoracic stomach. This diet may also be used for other gastrointestinal surgeries, such as Heller myotomy and repair of achalasia. The diet will help control diarrhea, excess gas and swallowing problems, which may occur after this type of surgery. Important Steps to Keep Your Stomach From Stretching Eat small, frequent meals (six to eight per day). This will help you consume the majority of the nutrients you need without causing your stomach to feel full or distended. Drinking large amounts of fluids with meals can stretch your stomach. You may drink fluids between meals as often as you like, but limit fluids to 1/2 cup (4 fluid ounces) with meals and one cup (8 fluid ounces) with snacks. Sit upright while eating and stay upright for 30 minutes after each meal. [place] can help food move through your digestive tract. Do not lie down after eating. Sit upright for 2 hours after your last meal or snack of the day. Eat very slowly. Take your time when eating. Take small bites and chew your food well to gas leak inspector helper in swallowing and digestion. Avoid crusty breads and sticky, gummy foods, such as bananas, fresh doughy breads, rolls and doughnuts. These types of foods become sticky and difficult to swallow. Toasted breads tend to be better tolerated. Lastly, if you eat sweets, consume them at the end of your meal to avoid a group of symptoms referred to as dumping syndrome. This describes the rapid emptying of foods from the stomach to the small intestine. Sweetened beverages, candy and desserts move more rapidly and dump quickly into the intestines. This can cause symptoms of nausea, weakness, cold sweats, cramps, diarrhea and dizzy spells. Important Steps to Avoid Gas Do not drink through a straw, chew gum, or chew tobacco. These actions cause you to swallow air, which will produce excess gas in your stomach. Chew with your mouth closed and chew your food thoroughly. Avoid foods that cause stomach gas and distention. The foods include corn, dried beans, peas, lentils, onions, broccoli, cauliflower, and any food item from the cabbage family. Do not drink carbonated drinks, alcohol, citrus, or tomato products. What Will I Be Able To Eat and Drink After Surgery After Maria Alejandra Fundoplication Surgery, your diet will be advanced slowly by your surgeon. Generally, you will be on a thin/clear liquid diet for the first 10 days. Then you will advance to the full liquid diet for 4 days and eventually to a Maria Alejandra soft diet for 7 days. After any surgery, protein consumption is important for healing. To get enough protein, drink 3-4 [place] Instant Breakfast, Ensure, or equivalent daily. Reminder: carbonated beverages (such as sodas, energy drinks, flavored carbonated water), and alcohol are not permitted for the 1st 6 to 8 weeks after surgery. After this time you may attempt to reintroduce them in small amounts. Please note: dairy products such as milk, ice cream, and putting may cause diarrhea and some people after surgery. He may need to avoid milk products. If so you may substitute them with lactose free beverages, such as soy, rice, lactate, or almond milk. Please be aware that each patient's tolerance to food is different. Your doctor will advance your diet depending on how well you progress after surgery. Thin Liquid Diet The first diet after Maria Alejandra Fundoplication Surgery is the thin liquids diet. Follow this diet for postoperative days 1-10 06/26/2017 - 07/05/2017. Thin liquids include: Apple, Cranberry, or Grape Juice (no citrus juice) Chicken Broth Beef Broth Flavored Gelatin (Jell-O) Decaffeinated Tea or Coffee Popsicles or Arabic Ice Caffeinated Beverages Will Be Permitted Based upon Tolerance Dairy Thin Milkshakes (strawberry or vanilla flavored- No chocolate) Drink 3-4 [place] instant breakfast, Ensure, or equivalent daily. May be mixed with dairy for thin milkshakes Full Liquid Diet Follow this diet for postoperative days 11-14 07/06/2017- 07/09/2017. Full liquid diet includes anything in the thin liquid diet plus: Milk, Soy, Rice, and [place] (No Chocolate) Cream of Wheat, Cream of Rice, Grits Strained Creamed Soups (No Tomato Water Broccoli) Vanilla and [place] Flavored Ice Cream Sherbet Vanilla and Butterscotch Pudding (No Chocolate or Coconut) Continue 3-4 [place] Instant Breakfast, Ensure, or an Equivalent Daily. Maybe Next with Dairy for Thin Milkshakes. Maria Alejandra Soft Diet Follow this diet for postoperative days 15-20 07/10/2017- 07/16/2017. (If you are consuming enough protein, you may stop the protein supplements). Referrals: Mary Lopez CNP [Primary Care Provider] - (2 week hospital follow-up ) Therese Watkins CNP [Advanced Practice Nurse] - 07/14/17 1:00 pm Hugo Carrasquillo MD [Partnered Physician] - (2 week hospital follow-up hypokalemia WEB REQUEST ENTERED. OFFICE WILL CALL WITH APPOINTMENT.) Prescriptions: Docusate [Colace] 100 mg PO BID #30 capsule Lisinopril [Zestril] 20 mg PO DAILY #30 tablet OxyCODONE Immed Rel [Roxicodone 5 MG] 5 mg PO Q4H PRN 7 Days #30 tablet PRN Reason: Pain <Hugo Carrasquillo - Last Filed: 07/27/17 16:57> Date of Encounter: 06/29/17 - Assessment and Plan (1) Hyponatremia Status: Acute (2) S/P repair of paraesophageal hernia Status: Acute Objective - Lab 06/30/17 04:25 06/30/17 14:43 Most recent lab results Calcium 9.1 mg/dL (8.6-10.3) 06/30/17 04:25 Urine Creatinine 17 mg/dL 06/28/17 15:00 Urine Sodium 74.8 mEq/L 06/28/17 15:00 - Attending Attestation I examined this patient and my medical decision-making was reviewed with the Resident Physician. I agree with the documented findings, disposition and treatment plan as described except to the extent set forth below. Pt seen and examined with acute hyponatremia postop in the setting of decreased po intake, HCTZ and likely ADH excess. Continue salt tabs if able to tolerate po. No NS needed. No off HCTZ, will maintain off. Exam unremarkable except for surgical wound in abdomen with dressing. Sodium slightly improved from 120 to 121, will monitor serially.
[2017-06-29 08:34] LABS: Blood Urea Nitrogen 10 mg/dL (8-23); Calcium 8.5 mg/dL (8.6-10.3); Carbon Dioxide 21 mEq/L (23-29); Chloride 93 mEq/L (98-107); Glucose 131 mg/dL (70-105); Osmolality,Calculated 253 (280-300); Potassium 3.4 mEq/L (3.5-5.1); Sodium 121 mEq/L (136-145)
--- NOTE | 2017-06-29 08:36 | General Surgery Progress Note ---
<Shirley Barahona - Last Filed: 06/29/17 08:57> Date of Encounter: 06/29/17 Time of Encounter: 08:28 - Assessment and Plan (1) S/P repair of paraesophageal hernia Current Visit: Yes Status: Acute Date of procedure: 06/25/17 Pre-op diagnosis: Paraesophageal hiatal hernia with gastric volvulus Post-op diagnosis: same Procedure: #1 repair of paraesophageal hiatal hernia #2 Maria Alejandra fundoplication # 3 lysis of adhesions Anesthesia: GETA Surgeon: Fred Carson POD #4 Plan: serial abdominal exams Clear liquid diet, with supplements Prioritize pain management to support rehabilitation Ambulate TID with assistance up to chair for all trays continue G.I. and DVT prophylaxis (2) Shortness of breath Current Visit: Yes Status: Acute Pt states Accunebs alleviated SOB. Continue accupaps q6 hr Encouraged aggressive pulmomary toilet this AM Encouraged cough and deep breathing (3) Hyponatremia Current Visit: Yes Status: Acute Pt remains alert and oriented in speech. Alert if N/V develops Repeat BMP Nephro on consult, greatly appreciate recs. Agree to transition BP meds to lisinopril, 2/2 to concern for pt's home HCTZ worsening Hyponatremia. (4) Hypertension Current Visit: Yes Status: Chronic As above. Qualifiers: Hypertension type: essential hypertension Qualified Code(s): I10 - Essential (primary) hypertension (5) Postoperative urinary retention Current Visit: Yes Status: Acute Initial retention, resolved. Likely 2/2 to GETA response Will Continue to monitor I/O. Do not place taylor if concern re-develops - Concern for possible stricture noted in pre-operative care. (6) DVT prophylaxis Current Visit: Yes Status: Acute Heparin SubQ Ambulation, as noted above, with assistance EPCDs Subjective Patient reports: no new complaints, pain is less, afebrile Objective Vital Signs - Last 8 Hours Temp Pulse Resp BP Pulse Ox 06/29/17 06:50 97.4 F L 77 14 133/84 94 06/29/17 03:59 16 95 06/29/17 03:53 98.0 F 74 18 128/87 95 Intake and Output 06/28/17 06/29/17 06/29/17 23:59 07:59 15:59 Intake Total 460 / 460 500 / 500 Output Total 500 / 500 1999 Balance -40 / -40 -1500 / -1500 Intake: IV Fluids 100 / 100 200 / 200 Ofirmev 1,000 mg/100 ml 1,000 100 / 100 200 / 200 mg In 100 ml @ 400 mls/hr IVPB Q6H [facility] Rx#:[id number] Oral 360 / 360 300 / 300 Output: Urine 500 / 500 1999 Other: Meal Dinner Percent of Meal Consumed 0% # Voids 1 Weight 103.62 kg Patient Weight 06/29/17 23:59 Weight 103.62 kg - General physical appearance no distress - Eyes normal ocular movement - Respiratory normal expansion (equal breath sounds b/l), normal respiratory effort - Cardiovascular Cardiovascular exam: Present: regular rhythm, no murmurs/rubs/gallops - Abdomen Abdomen: Present: bowel sounds present, soft, tender (expected post-operative tenderness) - Incision Incision: Present: clean and dry, intact, approximated. Absent: draining, purulent - Psychiatric oriented to time, oriented to person, oriented to place, speech is normal - Labs 06/29/17 04:35 06/29/17 04:35 Diabetes panel 06/28/17 Range/Units 08:44 Sodium 120 L* (136-145) mEq/L Thyroid panel 06/29/17 Range/Units 04:35 TSH 2.119 (0.340-5.600) mcIU/mL Pituitary panel 06/28/17 06/29/17 Range/Units 08:44 04:35 Sodium 120 L* (136-145) mEq/L TSH 2.119 (0.340-5.600) mcIU/mL Adrenal panel 06/28/17 Range/Units 08:44 Sodium 120 L* (136-145) mEq/L - VTE Documentation of Mechanical Device: Intermittent pneumatic compression device Consult Discharge Plan - Plan Referrals: Mary Lopez CNP [Primary Care Provider] - Therese Watkins CNP [Advanced Practice Nurse] - 07/14/17 1:00 pm <Fred Carson - Last Filed: 06/29/17 19:29> Date of Encounter: 06/29/17 Objective Vital Signs - Last 8 Hours Temp Pulse Resp BP Pulse Ox 06/29/17 16:20 14 94 06/29/17 15:01 98.4 F 76 14 137/82 94 Intake and Output 06/29/17 06/29/17 06/29/17 07:59 15:59 23:59 Intake Total 500 / 500 700 / 700 480 / 480 Output Total 1999 1575 / 1575 Balance -1500 / -1500 -875 / -875 480 / 480 Intake: IV Fluids 200 / 200 100 / 100 Ofirmev 1,000 mg/100 ml 1,000 200 / 200 100 / 100 mg In 100 ml @ 400 mls/hr IVPB Q6H [facility] Rx#:[id number] Oral 300 / 300 600 / 600 480 / 480 Output: Urine 1999 1575 / 1575 Other: Meal Lunch Dinner Stool Size Small Stool Consistency formed Stool Characteristics Normal for Patient Stool Color Brown # Voids 1 3 # Bowel Movements 1 Weight 103.62 kg Patient Weight 06/29/17 23:59 Weight 103.62 kg - Labs 06/29/17 04:35 06/29/17 04:35 Diabetes panel 06/29/17 Range/Units 04:35 Sodium 121 L (136-145) mEq/L Potassium 3.4 L (3.5-5.1) mEq/L Chloride 93 L (98-107) mEq/L Carbon Dioxide 21 L (23-29) mEq/L BUN 10 (8-23) mg/dL Creatinine 0.96 (0.70-1.30) mg/dL Glucose 131 H (70-105) mg/dL Calcium 8.5 L (8.6-10.3) mg/dL Thyroid panel 06/29/17 Range/Units 04:35 TSH 2.119 (0.340-5.600) mcIU/mL Calcium panel 06/29/17 Range/Units 04:35 Calcium 8.5 L (8.6-10.3) mg/dL Pituitary panel 06/29/17 06/29/17 Range/Units 04:35 04:35 Sodium 121 L (136-145) mEq/L Potassium 3.4 L (3.5-5.1) mEq/L Chloride 93 L (98-107) mEq/L Carbon Dioxide 21 L (23-29) mEq/L BUN 10 (8-23) mg/dL Creatinine 0.96 (0.70-1.30) mg/dL Glucose 131 H (70-105) mg/dL Calcium 8.5 L (8.6-10.3) mg/dL TSH 2.119 (0.340-5.600) mcIU/mL Adrenal panel 06/29/17 Range/Units 04:35 Sodium 121 L (136-145) mEq/L Potassium 3.4 L (3.5-5.1) mEq/L Chloride 93 L (98-107) mEq/L Carbon Dioxide 21 L (23-29) mEq/L BUN 10 (8-23) mg/dL Creatinine 0.96 (0.70-1.30) mg/dL Glucose 131 H (70-105) mg/dL Calcium 8.5 L (8.6-10.3) mg/dL - Attending Attestation I examined this patient and my medical decision-making was reviewed with the Resident Physician. I agree with the documented findings, disposition and treatment plan as described except to the extent set forth below. The patient is seen and evaluated on morning rounds with the resident. He is doing quite well and should be ready for discharge as he tolerates a diet. Ambulate today Fred Carson MD FACS
[2017-06-29] MEDS: Lisinopril 20 MG TABLET PO SCH (09:03)
[2017-06-29] MEDS: Aspirin Enteric Coated 81 MG Tablet PO SCH (09:03)
[2017-06-29] MEDS: Cyanocobalamin (B-12) 1,000 MCG TABLET PO SCH (09:03)
[2017-06-29 09:45] LABS: BUN/Creatinine Ratio 10 (6-26); eGFR For African Americans > 60 (> 60); eGFR For Non-African Americans > 60 (> 60)
[2017-06-29] MEDS ORDERED: *HR* OxyCODONE Immed Rel 5 MG TABLET PO PRN (09:45)
[2017-06-29] MEDS ORDERED: Acetaminophen 325 MG TABLET PO PRN (14:11)
[2017-06-29] MEDS: *HR* OxyCODONE Immed Rel 5 MG TABLET PO PRN ×2 (17:35→22:45)
[2017-06-30] MEDS: Metoclopramide 10 MG/2 ML VIAL IVP SCH ×3 (00:04→11:47)
[2017-06-30] MEDS: Albuterol Neb 1.25 MG/3 ML VIAL IH SCH ×4 (03:40→16:00)
[2017-06-30] MEDS: Ipratropium/Albuterol Neb 3 ML IH SCH ×3 (03:40→15:58)
[2017-06-30 05:03] LABS: Basophils # 0.1 K/mcL (0.0-0.2); Basophils % 0.8 %; Eosinophils # 0.1 K/mcL (0.0-0.6); Eosinophils % 1.4 %; Hematocrit 35.5 % (37.5-50.1); Hemoglobin 12.1 g/dL (12.9-16.9); Immature Granulocytes % 0.5 % (0-4); Lymphocytes # 0.9 K/mcL (0.6-4.6); Lymphocytes % 14.8 %; Mean Corpuscular HGB Conc 34.1 g/dL (31.6-35.5); Mean Corpuscular Hemoglobin 29.7 pg (28.0-33.3); Mean Corpuscular Volume 87.2 fL (83.0-100.0); Mean Platelet Volume 9.6 fL (9.4-12.4); Monocytes % 15.9 %; Neutrophils # 4.2 K/mcL (1.6-8.9); Platelet Count 321 K/mcL (140-400); Red Blood Count 4.07 M/mcL (4.19-5.50); Red Cell Distribution Width 12.5 % (11.5-14.5); Segmented Neutrophils % 66.6 %
[2017-06-30 05:18] LABS: BUN/Creatinine Ratio 7 (6-26); Blood Urea Nitrogen 7 mg/dL (8-23); Calcium 9.1 mg/dL (8.6-10.3); Carbon Dioxide 24 mEq/L (23-29); Chloride 102 mEq/L (98-107); Glucose 113 mg/dL (70-105); Osmolality,Calculated 273 (280-300); Sodium 132 mEq/L (136-145); eGFR For African Americans > 60 (> 60); eGFR For Non-African Americans > 60 (> 60)
[2017-06-30] MEDS: *HR* Heparin 5,000 UNIT/ML VIAL SQ SCH (06:44)
[2017-06-30] MEDS: *HR* OxyCODONE Immed Rel 5 MG TABLET PO PRN ×2 (06:44→11:58)
--- NOTE | 2017-06-30 07:16 | Nephrology Progress Note ---
<Rick Painter - Last Filed: 06/30/17 14:40> Date of Encounter: 06/30/17 Time of Encounter: 07:15 - Assessment and Plan (1) Hyponatremia Status: Acute Hyponatremia in the setting of HCTZ and post-op status likely due to ADH excess Will give 250cc 1/2 NS today due to rapid overcorrection in sodium level to avoid osmotic demyelination syndrome Hold Salt tablets today due to increased sodium level, resume upon discharge if able to tolerate Liberalize sodium in diet If sodium level slightly improved after IVF, anticipate discharge once cleared by per primary team Discontinue HCTZ upon discharge Patient will need repeat BMP in 1 week and nephrology follow up upon discharge (2) Postoperative urinary retention Status: Acute Resolved Continue to monitor (3) Hypertension Status: Chronic Discontinue HCTZ Continue Lisinopril Patient will need nephrology follow up upon discharge Qualifiers: Hypertension type: essential hypertension Qualified Code(s): I10 - Essential (primary) hypertension Subjective Principal diagnosis: Hyponatremia Interval history: Patient seen and examined. Patient reports abdominal pain this AM and is tolerating liquid diet. His sodium level is 132 today. He reports good urine output. Patient was started on IVF and is awaiting repeat sodium level this afternoon before potential discharge. Objective - Vital Signs Vital signs: Vital Signs Temp Pulse Resp BP Pulse Ox 06/30/17 03:53 97.5 F L 78 16 128/81 95 06/30/17 00:27 97.5 F L 86 16 107/71 93 06/29/17 22:20 17 98 06/29/17 20:14 98.1 F 89 16 125/85 93 06/29/17 16:20 14 94 06/29/17 15:01 98.4 F 76 14 137/82 94 06/29/17 10:58 14 96 06/29/17 09:59 97.3 F L 81 14 142/90 96 Intake and Output 06/29/17 06/29/17 06/30/17 15:59 23:59 07:59 Intake Total 700 / 700 480 / 480 0 / 0 Output Total 1575 / 1575 2024 1025 / 1025 Balance -875 / -875 -1545 / -1545 -1025 / -1025 Intake: IV Fluids 100 / 100 Ofirmev 1,000 mg/100 ml 1,000 100 / 100 mg In 100 ml @ 400 mls/hr IVPB Q6H ELINA Rx#:[id number] Oral 600 / 600 480 / 480 0 / 0 Output: Urine 1575 / 1575 2024 1025 / 1025 Other: Meal Lunch Dinner Stool Size Small Stool Consistency formed Stool Characteristics Normal for Patient Stool Color Brown # Voids 3 # Bowel Movements 1 - General Appearance General appearance: Present: well-developed, well-nourished, appears started age EENT: Present: ATNC, PERRL, mucous membranes moist Neck: Present: supple Respiratory: Present: clear Cardiology: Present: no murmurs, no rub, no gallops, regular rate, regular rhythm, normal S1, normal S2 Gastrointestinal: Present: normoactive bowel sounds, tenderness (appropriate TTP , midline abd incision C/D/I), no guarding, no organomegaly Integumentary: Present: no rash, warm and dry (midline abd incision C/D/I) Neurologic: Present: no focal deficit, alert and oriented x3 Musculoskeletal: Present: no deformities, no erythema, no cyanosis Psychiatric: Present: mood/affect appropriate, cooperative - Lab 06/30/17 04:25 06/30/17 04:25 Most recent lab results Calcium 9.1 mg/dL (8.6-10.3) 06/30/17 04:25 Urine Creatinine 17 mg/dL 06/28/17 15:00 Urine Sodium 74.8 mEq/L 06/28/17 15:00 - Allied health notes Allied health notes reviewed: nursing - VTE Documentation of Mechanical Device: Intermittent pneumatic compression device Consult Discharge Plan - Plan Instructions: Chronic Hypertension (DC) Additional Instructions: #1 may shower, no tub bath for 2 weeks #2 wash incisions with soap and water and pat dry daily #3 no lifting, pushing, pulling more than 15 pounds for the next 6 weeks #4 no driving until off narcotics for 24 hours and able to safely react in the car #5 may climb stairs [facility] Diet After Maria Alejandra Fundoplication Surgery This diet information is for patients who have recently had Maria Alejandra Fundoplication Surgery to correct reflux disease or to repair various types of hernias, such as hiatal hernia and intrathoracic stomach. This diet may also be used for other gastrointestinal surgeries, such as Heller myotomy and repair of achalasia. The diet will help control diarrhea, excess gas and swallowing problems, which may occur after this type of surgery. Important Steps to Keep Your Stomach From Stretching Eat small, frequent meals (six to eight per day). This will help you consume the majority of the nutrients you need without causing your stomach to feel full or distended. Drinking large amounts of fluids with meals can stretch your stomach. You may drink fluids between meals as often as you like, but limit fluids to 1/2 cup (4 fluid ounces) with meals and one cup (8 fluid ounces) with snacks. Sit upright while eating and stay upright for 30 minutes after each meal. [place] can help food move through your digestive tract. Do not lie down after eating. Sit upright for 2 hours after your last meal or snack of the day. Eat very slowly. Take your time when eating. Take small bites and chew your food well to carpenter helper maintenance in swallowing and digestion. Avoid crusty breads and sticky, gummy foods, such as bananas, fresh doughy breads, rolls and doughnuts. These types of foods become sticky and difficult to swallow. Toasted breads tend to be better tolerated. Lastly, if you eat sweets, consume them at the end of your meal to avoid a group of symptoms referred to as dumping syndrome. This describes the rapid emptying of foods from the stomach to the small intestine. Sweetened beverages, candy and desserts move more rapidly and dump quickly into the intestines. This can cause symptoms of nausea, weakness, cold sweats, cramps, diarrhea and dizzy spells. Important Steps to Avoid Gas Do not drink through a straw, chew gum, or chew tobacco. These actions cause you to swallow air, which will produce excess gas in your stomach. Chew with your mouth closed and chew your food thoroughly. Avoid foods that cause stomach gas and distention. The foods include corn, dried beans, peas, lentils, onions, broccoli, cauliflower, and any food item from the cabbage family. Do not drink carbonated drinks, alcohol, citrus, or tomato products. What Will I Be Able To Eat and Drink After Surgery After Maria Alejandra Fundoplication Surgery, your diet will be advanced slowly by your surgeon. Generally, you will be on a thin/clear liquid diet for the first 10 days. Then you will advance to the full liquid diet for 4 days and eventually to a Maria Alejandra soft diet for 7 days. After any surgery, protein consumption is important for healing. To get enough protein, drink 3-4 [place] Instant Breakfast, Ensure, or equivalent daily. Reminder: carbonated beverages (such as sodas, energy drinks, flavored carbonated water), and alcohol are not permitted for the 1st 6 to 8 weeks after surgery. After this time you may attempt to reintroduce them in small amounts. Please note: dairy products such as milk, ice cream, and putting may cause diarrhea and some people after surgery. He may need to avoid milk products. If so you may substitute them with lactose free beverages, such as soy, rice, lactate, or almond milk. Please be aware that each patient's tolerance to food is different. Your doctor will advance your diet depending on how well you progress after surgery. Thin Liquid Diet The first diet after Maria Alejandra Fundoplication Surgery is the thin liquids diet. Follow this diet for postoperative days 1-10 06/26/2017 - 07/05/2017. Thin liquids include: Apple, Cranberry, or Grape Juice (no citrus juice) Chicken Broth Beef Broth Flavored Gelatin (Jell-O) Decaffeinated Tea or Coffee Popsicles or [place] Ice Caffeinated Beverages Will Be Permitted Based upon Tolerance Dairy Thin Milkshakes (strawberry or vanilla flavored- No chocolate) Drink 3-4 [place] instant breakfast, Ensure, or equivalent daily. May be mixed with dairy for thin milkshakes Full Liquid Diet Follow this diet for postoperative days 11-14 07/06/2017- 07/09/2017. Full liquid diet includes anything in the thin liquid diet plus: Milk, Soy, Rice, and [place] (No Chocolate) Cream of Wheat, Cream of Rice, Grits Strained Creamed Soups (No Tomato Water Broccoli) Vanilla and [place] Flavored Ice Cream Sherbet Vanilla and Butterscotch Pudding (No Chocolate or Coconut) Continue 3-4 [place] Instant Breakfast, Ensure, or an Equivalent Daily. Maybe Next with Dairy for Thin Milkshakes. Maria Alejandra Soft Diet Follow this diet for postoperative days 15-20 07/10/2017- 07/16/2017. (If you are consuming enough protein, you may stop the protein supplements). Referrals: Mary Lopez CNP [Primary Care Provider] - (2 week hospital follow-up ) Therese Watkins CNP [Advanced Practice Nurse] - 07/14/17 1:00 pm Hugo Carrasquillo MD [Partnered Physician] - (2 week hospital follow-up hypokalemia WEB REQUEST ENTERED. OFFICE WILL CALL WITH APPOINTMENT.) Prescriptions: Docusate [Colace] 100 mg PO BID #30 capsule Lisinopril [Zestril] 20 mg PO DAILY #30 tablet OxyCODONE Immed Rel [Roxicodone 5 MG] 5 mg PO Q4H PRN 7 Days #30 tablet PRN Reason: Pain <Hugo Carrasquillo - Last Filed: 07/28/17 17:24> Date of Encounter: 06/30/17 - Assessment and Plan (1) Hyponatremia Status: Acute (2) S/P repair of paraesophageal hernia Status: Acute Objective - Lab 06/30/17 04:25 06/30/17 14:43 Most recent lab results Calcium 9.1 mg/dL (8.6-10.3) 06/30/17 04:25 Urine Creatinine 17 mg/dL 06/28/17 15:00 Urine Sodium 74.8 mEq/L 06/28/17 15:00 - Attending Attestation I examined this patient and my medical decision-making was reviewed with the Resident Physician. I agree with the documented findings, disposition and treatment plan as described except to the extent set forth below. Pt seen and examined with some abdominal discomfort but tolerating diet well. Sodium now at 132 which is a rather rapid correction from 121 previously. Will give 1/2NS and stop salt tabs for now but will need on discharge. Followup with me within 4 weeks with BMP. Pt to remain off HCTZ.
[2017-06-30] MEDS: Aspirin Enteric Coated 81 MG Tablet PO SCH (08:46)
[2017-06-30] MEDS: Lisinopril 20 MG TABLET PO SCH (08:46)
[2017-06-30] MEDS: Cyanocobalamin (B-12) 1,000 MCG TABLET PO SCH (08:46)
[2017-06-30] MEDS ORDERED: 0.9 % Sodium Chloride 250 ML IVC SCH (11:45)
[2017-06-30] MEDS ORDERED: 0.9 % Sodium Chloride 250 ML IVC ONE (11:49)
[2017-06-30] MEDS ORDERED: 0.9 % Sodium Chloride 250 ML ONE (11:55)
[2017-06-30 14:33] VITALS: BP 132/77
--- NOTE | 2017-06-30 16:20 | Discharge Summary ---
<Richa Watson - Last Filed: 06/30/17 16:31> Date of Encounter: 06/30/17 Time of Encounter: 16:13 - Discharge Diagnosis (1) S/P repair of paraesophageal hernia Priority: Primary Status: Acute (2) Hypertension Priority: Secondary Status: Chronic Qualifiers: Hypertension type: essential hypertension Qualified Code(s): I10 - Essential (primary) hypertension (3) Hyponatremia Priority: Secondary Status: Acute (4) Postoperative urinary retention Priority: Secondary Status: Resolved - Discharge Medications Prescriptions: Docusate [Colace] 100 mg PO BID #30 capsule Lisinopril [Zestril] 20 mg PO DAILY #30 tablet OxyCODONE Immed Rel [Roxicodone 5 MG] 5 mg PO Q4H PRN 7 Days #30 tablet PRN Reason: Pain Home Medications: Aspirin [Lo-Dose Aspirin EC] 81 mg PO DAILY 06/25/17 [History] Cyanocobalamin (Vitamin B-12) [Vitamin B-12] 1,000 mcg SL DAILY 06/25/17 [ History] Ergocalciferol (VITAMIN D2) [Vitamin D2] 50,000 unit PO SA 06/25/17 [History] Fish Oil/Dha/Epa [Fish Oil 1,200 mg Fish Oil] 1 cap PO DAILY 06/25/17 [History] Omeprazole [PriLOSEC] 40 mg PO DAILY 06/25/17 [History] Acetaminophen [Tylenol] 650 mg PO Q6HR PRN tablet 06/30/17 [Rx] Docusate [Colace] 100 mg PO BID #30 capsule 06/30/17 [Rx] Lisinopril [Zestril] 20 mg PO DAILY #30 tablet 06/30/17 [Rx] OxyCODONE Immed Rel [Roxicodone 5 MG] 5 mg PO Q4H PRN 7 Days #30 tablet [Rx] Allergies/Adverse Reactions: 3 Allergy/AdvReac Type Severity Reaction Status Date / Time No Known Allergies Allergy Verified 06/25/17 07:20 General Surgery Exam Initial Vital Signs Temp Pulse Resp BP Pulse Ox 97.6 F 72 18 111/78 97 06/25/17 07:02 06/25/17 07:02 06/25/17 07:02 06/25/17 07:02 06/25/17 07:02 - General physical appearance well developed, well nourished, no distress - Eyes normal ocular movement - ENT normal mucosa, atraumatic, normocephalic - Neck trachea midline - Respiratory normal respiratory effort, clear to auscultation - Cardiovascular Cardiovascular exam: Present: RRR - Abdomen Abdomen general surgery: Present: bowel sounds present, soft, tender (Expected postoperative tenderness) - Incision Incision: Present: clean and dry, intact - Integumentary Integumentary general surgery: Present: warm and dry - Neurologic Present: CN 2-12 grossly intact - Musculoskeletal Present: normal gait, normal posture - Psychiatric Psychiatric general surgery: Present: appropriate, oriented to person, oriented to place, oriented to time, speech is normal, memory intact Date of admission: 06/25/17 13:34 Primary care physician: Mary Lopez CNP Consults: 06/27/17 13:44 Consult to Respiratory Therapy [CONS] Routine Reason for Consult: Accuneb Call Completed: Yes 06/28/17 10:05 Consult to Nephrology [CONS] Routine Consulting Provider: Kidney Taryn/CELESTINE/OSMANI/BIRD Reason for Consult: Hyponatremia (Request by Dr. Sparrow) Call Completed: Yes 06/29/17 18:15 Consult to Physical Therapy [CONS] Routine Comment: Evaluate, develop and implement POC Reason for Consult: evaluate for discharge planning 06/29/17 18:17 Consult to Occupational Therapy [CONS] Routine Comment: Evaluate, develop and implement POC Reason for Consult: evaluate for discharge planning 06/30/17 08:31 Consult to Formulation Technician [CONS] Routine Reason for SW Consult: patient is wanting information on possibilty of going to swing bed at [facility] Discharging clinician: Fred Casron ([facility]) Anticipated date of discharge: 06/30/17 - Patient Status Disposition: Home, Self-Care Functional capacity at discharge: independent ambulation Overall status at discharge: patient is progressing back to baseline - Ambulatory Orders Ambulatory Orders: Basic Metabolic Panel [CHEM] Time Frame: 1 Week, Facility: [facility], Location: Lab - Discharge Instructions Instructions: Chronic Hypertension (DC) Follow Up With: Mary Lopez CNP [Primary Care Provider] - (2 week hospital follow-up ) Therese Watkins CNP [Advanced Practice Nurse] - 07/14/17 1:00 pm Hugo Carrasquillo MD [Partnered Physician] - (2 week hospital follow-up hypokalemia WEB REQUEST ENTERED. OFFICE WILL CALL WITH APPOINTMENT.) Additional Instructions: #1 may shower, no tub bath for 2 weeks #2 wash incisions with soap and water and pat dry daily #3 no lifting, pushing, pulling more than 15 pounds for the next 6 weeks #4 no driving until off narcotics for 24 hours and able to safely react in the car #5 may climb stairs [facility] Diet After Maria Alejandra Fundoplication Surgery This diet information is for patients who have recently had Maria Alejandra Fundoplication Surgery to correct reflux disease or to repair various types of hernias, such as hiatal hernia and intrathoracic stomach. This diet may also be used for other gastrointestinal surgeries, such as Heller myotomy and repair of achalasia. The diet will help control diarrhea, excess gas and swallowing problems, which may occur after this type of surgery. Important Steps to Keep Your Stomach From Stretching Eat small, frequent meals (six to eight per day). This will help you consume the majority of the nutrients you need without causing your stomach to feel full or distended. Drinking large amounts of fluids with meals can stretch your stomach. You may drink fluids between meals as often as you like, but limit fluids to 1/2 cup (4 fluid ounces) with meals and one cup (8 fluid ounces) with snacks. Sit upright while eating and stay upright for 30 minutes after each meal. [place] can help food move through your digestive tract. Do not lie down after eating. Sit upright for 2 hours after your last meal or snack of the day. Eat very slowly. Take your time when eating. Take small bites and chew your food well to mover helper in swallowing and digestion. Avoid crusty breads and sticky, gummy foods, such as bananas, fresh doughy breads, rolls and doughnuts. These types of foods become sticky and difficult to swallow. Toasted breads tend to be better tolerated. Lastly, if you eat sweets, consume them at the end of your meal to avoid a group of symptoms referred to as dumping syndrome. This describes the rapid emptying of foods from the stomach to the small intestine. Sweetened beverages, candy and desserts move more rapidly and dump quickly into the intestines. This can cause symptoms of nausea, weakness, cold sweats, cramps, diarrhea and dizzy spells. Important Steps to Avoid Gas Do not drink through a straw, chew gum, or chew tobacco. These actions cause you to swallow air, which will produce excess gas in your stomach. Chew with your mouth closed and chew your food thoroughly. Avoid foods that cause stomach gas and distention. The foods include corn, dried beans, peas, lentils, onions, broccoli, cauliflower, and any food item from the cabbage family. Do not drink carbonated drinks, alcohol, citrus, or tomato products. What Will I Be Able To Eat and Drink After Surgery After Maria Alejandra Fundoplication Surgery, your diet will be advanced slowly by your surgeon. Generally, you will be on a thin/clear liquid diet for the first 10 days. Then you will advance to the full liquid diet for 4 days and eventually to a Maria Alejandra soft diet for 7 days. After any surgery, protein consumption is important for healing. To get enough protein, drink 3-4 [place] Instant Breakfast, Ensure, or equivalent daily. Reminder: carbonated beverages (such as sodas, energy drinks, flavored carbonated water), and alcohol are not permitted for the 1st 6 to 8 weeks after surgery. After this time you may attempt to reintroduce them in small amounts. Please note: dairy products such as milk, ice cream, and putting may cause diarrhea and some people after surgery. He may need to avoid milk products. If so you may substitute them with lactose free beverages, such as soy, rice, lactate, or almond milk. Please be aware that each patient's tolerance to food is different. Your doctor will advance your diet depending on how well you progress after surgery. Thin Liquid Diet The first diet after Maria Alejandra Fundoplication Surgery is the thin liquids diet. Follow this diet for postoperative days 1-10 06/26/2017 - 07/05/2017. Thin liquids include: Apple, Cranberry, or Grape Juice (no citrus juice) Chicken Broth Beef Broth Flavored Gelatin (Jell-O) Decaffeinated Tea or Coffee Popsicles or [place] Ice Caffeinated Beverages Will Be Permitted Based upon Tolerance Dairy Thin Milkshakes (strawberry or vanilla flavored- No chocolate) Drink 3-4 [place] instant breakfast, Ensure, or equivalent daily. May be mixed with dairy for thin milkshakes Full Liquid Diet Follow this diet for postoperative days 11-14 07/06/2017- 07/09/2017. Full liquid diet includes anything in the thin liquid diet plus: Milk, Soy, Rice, and [place] (No Chocolate) Cream of Wheat, Cream of Rice, Grits Strained Creamed Soups (No Tomato Water Broccoli) Vanilla and [place] Flavored Ice Cream Sherbet Vanilla and Butterscotch Pudding (No Chocolate or Coconut) Continue 3-4 [place] Instant Breakfast, Ensure, or an Equivalent Daily. Maybe Next with Dairy for Thin Milkshakes. Maria Alejandra Soft Diet Follow this diet for postoperative days 15-20 07/10/2017- 07/16/2017. (If you are consuming enough protein, you may stop the protein supplements). - Diet and Activity Activity: other (See additional instructions above) Diet: other (Follow Maria Alejandra diet instructions as above and per handout) - Hospital Course Hospital course: Mr. Rankin is a 67 year old male status post #1 repair of paraesophageal hiatal hernia #2 Maria Alejandra fundoplication #3 lysis of adhesions times [address] Carson. He was inpatient in the hospital for postoperative pain control. The patient was initiated on 8 clear liquid diet and has tolerated this without difficulty. His postoperative course has been complicated by hyponatremia. Nephrology was consulted and made recommendations for treatment of hyponatremia. The patient's sodium levels have stabilized and are currently 132 today. His postoperative pain is well controlled. His vital signs are stable and he is afebrile. His laboratory values are stable. He is voiding and ambulate without difficulty. We will begin discharge planning to home and plan for outpatient follow-up in the next 7-10 days. - Time Spent with Patient Total time spent providing and/or coordinating discharge services: Less than 30 minutes Labs on day of discharge: Labs from last 24 hours 06/30/17 06/30/17 06/30/17 14:43 04:25 04:25 WBC 6.4 RBC 4.07 L Hgb 12.1 L Hct 35.5 L MCV 87.2 MCH 29.7 MCHC 34.1 RDW 12.5 Plt Count 321 MPV 9.6 Immature Gran % 0.5 Seg Neutrophils % 66.6 Lymphocytes % 14.8 Monocytes % 15.9 Eosinophils % 1.4 Basophils % 0.8 Neutrophils # 4.2 Lymphocytes # 0.9 Monocytes # 1.0 Eosinophils # 0.1 Basophils # 0.1 Sodium 132 L 132 L D Potassium 4.0 Chloride 102 Carbon Dioxide 24 BUN 7 L Creatinine 0.95 Est GFR ( Amer) > 60 Est GFR (Non-Af Amer) > 60 BUN/Creatinine Ratio 7 Glucose 113 H Calculated Osmolality 273 L Calcium 9.1 - Impressions ITS Impressions Chest X-Ray 06/27/17 09:47 IMPRESSION: Left basilar opacity may represent combination of atelectasis, pneumonia, scarring, and/or pleural effusion. Recommend radiographic follow-up to complete resolution after treatment. Multiple dilated bowel loops within partially imaged abdomen. Correlate clinically for any concern of acute intra-abdominal process. If further evaluation is clinically warranted, dedicated abdominal imaging may be obtained. D/ / Jayden Pierre MD / Jayden Pierre MD Interpreting Provider: Jayden Pierre MD - Attending Attestation For this encounter, I have reviewed the MANAGER INTERNSHIP or PA documentation, treatment plan, and medical decision making; and I have had face to face time with this patient. <Fred Carson T - Last Filed: 07/02/17 07:34> Date of Encounter: 06/30/17 General Surgery Exam Initial Vital Signs Temp Pulse Resp BP Pulse Ox 97.6 F 72 18 111/78 97 06/25/17 07:02 06/25/17 07:02 06/25/17 07:02 06/25/17 07:02 06/25/17 07:02 Date of admission: 06/25/17 13:34 Primary care physician: Mary Lopez CNP Consults: 06/27/17 13:44 Consult to Respiratory Therapy [CONS] Routine Reason for Consult: Accuneb Call Completed: Yes 06/28/17 10:05 Consult to Nephrology [CONS] Routine Consulting Provider: Kidney Taryn/CELESTINE/OSMANI/BIRD Reason for Consult: Hyponatremia (Request by Dr. Sparrow) Call Completed: Yes 06/29/17 18:15 Consult to Physical Therapy [CONS] Routine Comment: Evaluate, develop and implement POC Reason for Consult: evaluate for discharge planning 06/29/17 18:17 Consult to Occupational Therapy [CONS] Routine Comment: Evaluate, develop and implement POC Reason for Consult: evaluate for discharge planning 06/30/17 08:31 Consult to Formulation Technician [CONS] Routine Reason for SW Consult: patient is wanting information on possibilty of going to swing bed at [facility] - Hospital Course Hospital course: Mr. Rankin is a 67 year old male - Time Spent with Patient Total time spent providing and/or coordinating discharge services: - Impressions ITS Impressions Chest X-Ray 06/27/17 09:47 IMPRESSION: Left basilar opacity may represent combination of atelectasis, pneumonia, scarring, and/or pleural effusion. Recommend radiographic follow-up to complete resolution after treatment. Multiple dilated bowel loops within partially imaged abdomen. Correlate clinically for any concern of acute intra-abdominal process. If further evaluation is clinically warranted, dedicated abdominal imaging may be obtained. D/ / Jayden Pierre MD / Jayden Pierre MD Interpreting Provider: Jayden Pierre MD - Attending Attestation The patient was seen and evaluated on morning rounds. He is tolerating diet. He is ready for discharge. He will be seen in follow-up in the office. He will be given a Maria Alejandra fundoplication diet plan Fred Carson MD FACS
== END 2017-06-30 17:24 | disposition home or self-care (01) | DRG 327 ==
LOC: SAMDAY 06:38 → 3ANU 13:34
PROVIDERS: ADMIT Surgery; ATTEND Surgery